=== PATIENT | female | born 1935 | race Caucasian/White ===

== ENCOUNTER 2019-05-23 07:52 | Emergency (ER) | payer MEDICARE, MEDICAID ==
[~2019-05-23] VITALS: Ht 160 cm; Wt 75.0 kg
[~2019-05-23 07:52] MED LIST: ACET-2708 PO; AMLO5TAB88 PO; DIOVAN PO; DIPH25CA83 PO; DOCU-138 PO; DONE10TA11 PO; ESOM40CA PO; FAMO-135 PO; FENO145T36 PO; GABA300C PO; HYDR12.518 PO; IBUP-2029 PO; MECL-109 PO; METO10TA3 PO; METO25TA6 PO; OLME20TA13 PO; PREG50CA PO; PROM-177 PO; RABE20TA17 PO; SENN-22 PO; SERT50TA12 PO; TRAM50TA PO; VIC PO
[2019-05-23 09:05] LABS: BASOPHILS % 1.4 % (0.0-2.0); EOSINOPHILS % 1.8 % (0.0-5.0); HEMATOCRIT. 39.9 % (36.0-48.0); HEMOGLOBIN. 13.3 g/dL (12.0-16.0); MEAN CORPUSCULAR HEMOGLOBIN 31.7 pg (28.0-32.0); MEAN CORPUSCULAR VOLUME 94.7 fL (81.0-99.0); MEAN PLATELET VOLUME 8.7 fl (7.4-10.4); MONOCYTES % 9.5 % (2.0-8.0); NEUTROPHILS % 46.3 % (40.0-76.0); PLATELET 264 x1000/uL (130-400); RED BLOOD CELL COUNT 4.21 mill/uL (4.2-5.4); RED CELL DISTRIBUTION WIDTH 15.9 % (11.6-14.6)
[2019-05-23 09:12] LABS: CHLORIDE 114 mEq/L (98-107)
[2019-05-23 10:15] VITALS: BP 128/88
== END 2019-05-23 11:58 | disposition home or self-care (01) ==
LOC: ER 07:52
DX: R53.1 Weakness (principal); J02.9 Acute pharyngitis, unspecified
CPT/HCPCS: 36415; 71045; 87070; 87430; 93005; 99284

== ENCOUNTER 2019-10-22 22:35 | Inpatient (IN) | payer MEDICARE, MEDICAID ==
[~2019-10-22] VITALS: Ht 167.6 cm; Wt 74.8 kg
[~2019-10-22 22:35] MED LIST changes: +FENO145T25 PO; -FENO145T36 PO; -MECL-109 PO; +MECL-159 PO
[2019-10-22] MEDS ORDERED: PIPERACILLIN/TAZ 3.375G PREMIX 50 ML IV ONE (23:30)
[2019-10-22] MEDS ORDERED: MORPHINE SULFATE 4 MG/ML CPJ (NOT FOR IM USE) IV STA (23:30)
[2019-10-22] MEDS ORDERED: SODIUM CHLORIDE 0.9% 1000ML BAG (SEPSIS BOLUS) IV ONE (23:30)
[2019-10-22] MEDS ORDERED: ONDANSETRON HCL 4MG/2ML INJ IV STA (23:30)
[2019-10-22] MEDS ORDERED: METRONIDAZOLE 500 MG PREMIX 100 ML IV ONE (23:30)
[2019-10-23 00:06] LABS: BASOPHILS % 1.1 % (0.0-2.0); EOSINOPHILS % 0.8 % (0.0-5.0); HEMATOCRIT. 29.8 % (36.0-48.0); HEMOGLOBIN. 10.1 g/dL (12.0-16.0); LYMPHOCYTES % 40.2 % (20.0-50.0); MEAN CORPUSCULAR VOLUME 97.9 fL (81.0-99.0); MEAN PLATELET VOLUME 8.5 fl (7.4-10.4); MONOCYTES % 7.9 % (2.0-8.0); PLATELET 292 x1000/uL (130-400); RED BLOOD CELL COUNT 3.05 mill/uL (4.2-5.4); RED CELL DISTRIBUTION WIDTH 14.8 % (11.6-14.6)
[2019-10-23 00:15] LABS: INR 1.2; PROTHROMBIN TIME 12.7 sec (9.6-11.0)
[2019-10-23 00:24] LABS: CHLORIDE 119 mEq/L (98-107)
[2019-10-23 01:06] LABS: CLARITY URINE CLEAR (CLEAR); COLOR URINE YELLOW (YELLOW); KETONES URINE TRACE (NEGATIVE); LEUKOCYTE ESTERASE URINE NEGATIVE (NEGATIVE); NITRITE URINE NEGATIVE (NEGATIVE); OCCULT BLOOD URINE NEGATIVE (NEGATIVE); PH URINE 6.5 (4.5-8.0); PROTEIN URINE NEGATIVE (NEGATIVE); SPECIFIC GRAVITY URINE 1.021 (1.005-1.030)
[2019-10-23] MEDS ORDERED: GUAIFENESIN 200MG/10ML SUGAR FREE UDC PO PRN (09:45)
[2019-10-23] MEDS ORDERED: ONDANSETRON HCL 4MG/2ML INJ IV PRN (09:45)
[2019-10-23] MEDS ORDERED: ACETAMINOPHEN 325MG TABLET PO PRN (09:45)
[2019-10-23] MEDS ORDERED: IPRATROPIUM/ALBUTEROL 0.5-3(2.5)MG/3ML NEB HHN PRN (09:45)
[2019-10-23] MEDS ORDERED: DOCUSATE SODIUM 100MG CAPSULE PO PRN (09:45)
[2019-10-23] MEDS ORDERED: CLONIDINE 0.1MG TABLET PO PRN (09:45)
[2019-10-23] MEDS: LORAZEPAM 0.5MG TABLET PO PRN ×2 (12:56→20:07)
[2019-10-23 16:10] VITALS: BP 166/76
[2019-10-23] MEDS ORDERED: MECLIZINE 25MG TABLET PO PRN (17:00)
[2019-10-23] MEDS ORDERED: DIATR MEGLU/DIATRIZOATE SOLN 30ML PO NR (18:30)
[2019-10-23] MEDS: SUCRALFATE 1 G/10 ML UDC PO SCH ×2 (18:34→20:18)
[2019-10-23] MEDS: METOPROLOL TARTRATE 25MG TABLET PO SCH (18:35)
[2019-10-23] MEDS: DONEPEZIL HCL 10MG TABLET PO SCH (18:35)
[2019-10-23] MEDS: AMLODIPINE 5MG TABLET PO SCH (18:35)
[2019-10-23 20:00] VITALS: BP 165/79
[2019-10-23] MEDS ORDERED: INFLUENZA VIRUS VACCINE(AFLURIA) 0.5ML SYR IM ONE (20:00)
[2019-10-23] MEDS: PREGABALIN 50 MG CAPSULE PO SCH ×2 (20:18→21:01)
[2019-10-23] MEDS: SERTRALINE HCL 50MG TABLET PO SCH (20:18)
[2019-10-23] MEDS: TRAMADOL 50MG TABLET PO SCH (20:19)
[2019-10-23] MEDS: GABAPENTIN 300MG CAPSULE PO SCH (20:19)
[2019-10-23] MEDS ORDERED: LACTULOSE 20G/30ML UDC PO PRN (21:00)
[2019-10-24] VITALS: BP 142/75
[2019-10-24 04:00] VITALS: BP 147/87
[2019-10-24] MEDS ORDERED: NON FORMULARY PATIENT HOME MED XX SCH (05:00)
[2019-10-24 05:16] LABS: BASOPHILS % 0.7 % (0.0-2.0); HEMATOCRIT. 27.2 % (36.0-48.0); HEMOGLOBIN. 9.3 g/dL (12.0-16.0); LYMPHOCYTES % 22.3 % (20.0-50.0); MEAN CORPUSCULAR HEMOGLOBIN 33.7 pg (28.0-32.0); MEAN CORPUSCULAR VOLUME 98.2 fL (81.0-99.0); MEAN PLATELET VOLUME 9.1 fl (7.4-10.4); MONOCYTES % 3.5 % (2.0-8.0); NEUTROPHILS % 73.5 % (40.0-76.0); PLATELET 272 x1000/uL (130-400); RED BLOOD CELL COUNT 2.77 mill/uL (4.2-5.4); RED CELL DISTRIBUTION WIDTH 14.6 % (11.6-14.6)
[2019-10-24] MEDS: PREGABALIN 50 MG CAPSULE PO SCH ×3 (06:00→21:45)
[2019-10-24] MEDS: SUCRALFATE 1 G/10 ML UDC PO SCH ×4 (06:22→21:47)
[2019-10-24 06:51] LABS: CHLORIDE 116 mEq/L (98-107)
[2019-10-24 08:00] VITALS: BP 122/65
[2019-10-24 08:22] LABS: BASOPHILS % 0.5 % (0.0-2.0); EOSINOPHILS % 0.2 % (0.0-5.0); HEMATOCRIT. 27.1 % (36.0-48.0); HEMOGLOBIN. 9.2 g/dL (12.0-16.0); MEAN CORPUSCULAR VOLUME 97.8 fL (81.0-99.0); MEAN PLATELET VOLUME 8.8 fl (7.4-10.4); MONOCYTES % 5.6 % (2.0-8.0); NEUTROPHILS % 67.7 % (40.0-76.0); PLATELET 285 x1000/uL (130-400); RED BLOOD CELL COUNT 2.77 mill/uL (4.2-5.4); RED CELL DISTRIBUTION WIDTH 14.6 % (11.6-14.6)
[2019-10-24 08:23] LABS: BASOPHILS % 0.8 % (0.0-2.0); EOSINOPHILS % 0.2 % (0.0-5.0); HEMATOCRIT. 26.6 % (36.0-48.0); MEAN CORPUSCULAR HEMOGLOBIN 33.1 pg (28.0-32.0); MEAN PLATELET VOLUME 8.6 fl (7.4-10.4); MONOCYTES % 5.7 % (2.0-8.0); NEUTROPHILS % 66.3 % (40.0-76.0); PLATELET 273 x1000/uL (130-400); RED BLOOD CELL COUNT 2.71 mill/uL (4.2-5.4); RED CELL DISTRIBUTION WIDTH 14.8 % (11.6-14.6)
[2019-10-24] MEDS ORDERED: PANTOPRAZOLE SODIUM 40 MG/VIAL IV SCH (09:00)
[2019-10-24] MEDS ORDERED: PANTOPRAZOLE SODIUM 40 MG/VIAL IV ONE ×2 (10:15→21:35)
[2019-10-24] MEDS: METOPROLOL TARTRATE 25MG TABLET PO SCH (10:23)
[2019-10-24] MEDS: FENOFIBRATE NANOCRYSTALLIZED 145MG TABLET PO SCH (10:23)
[2019-10-24] MEDS: TRAMADOL 50MG TABLET PO SCH ×2 (10:24→21:45)
[2019-10-24] MEDS: DONEPEZIL HCL 10MG TABLET PO SCH (10:24)
[2019-10-24] MEDS: AMLODIPINE 5MG TABLET PO SCH (10:24)
[2019-10-24] MEDS: PANTOPRAZOLE 80 MG in SODIUM CHLORIDE 0.9% 100 ML IV SCH ×2 (10:59→21:46)
[2019-10-24] MEDS ORDERED: BACTERIOSTATIC SODIUM CHLORIDE 0.9% 30ML VIAL IJ ONE (11:19)
[2019-10-24] MEDS ORDERED: DIATR MEGLU/DIATRIZOATE SOLN 30ML PO NR (11:30)
[2019-10-24 12:00] VITALS: BP 169/57
[2019-10-24 16:00] VITALS: BP 164/60
[2019-10-24 16:02] LABS: BASOPHILS % 0.4 % (0.0-2.0); EOSINOPHILS % 0.2 % (0.0-5.0); HEMOGLOBIN. 9.7 g/dL (12.0-16.0); LYMPHOCYTES % 18.7 % (20.0-50.0); MEAN CORPUSCULAR HEMOGLOBIN 32.9 pg (28.0-32.0); MEAN PLATELET VOLUME 8.5 fl (7.4-10.4); MONOCYTES % 5.3 % (2.0-8.0); NEUTROPHILS % 75.4 % (40.0-76.0); PLATELET 300 x1000/uL (130-400); RED BLOOD CELL COUNT 2.93 mill/uL (4.2-5.4); RED CELL DISTRIBUTION WIDTH 14.7 % (11.6-14.6)
[2019-10-24] MEDS: SODIUM CHLORIDE 0.9% 1,000 ML IV SCH (16:07)
[2019-10-24] MEDS ORDERED: MIDAZOLAM HCL 5 MG/5 ML VIAL ONE (17:56)
[2019-10-24] MEDS ORDERED: FENTANYL CITRATE/PF 50MCG/ML 2ML VIAL ONE (17:56)
[2019-10-24] MEDS ORDERED: MIDAZOLAM HCL 5 MG/5 ML VIAL IV PRN (18:01)
[2019-10-24] MEDS ORDERED: FENTANYL CITRATE/PF 50MCG/ML 2ML VIAL IV PRN (18:03)
[2019-10-24 21:00] VITALS: BP 150/60
[2019-10-24] MEDS: GABAPENTIN 300MG CAPSULE PO SCH (21:45)
[2019-10-24] MEDS: SERTRALINE HCL 50MG TABLET PO SCH (21:45)
[2019-10-24 23:44] LABS: BASOPHILS % 0.5 % (0.0-2.0); EOSINOPHILS % 0.4 % (0.0-5.0); HEMATOCRIT. 26.8 % (36.0-48.0); HEMOGLOBIN. 8.8 g/dL (12.0-16.0); LYMPHOCYTES % 38.4 % (20.0-50.0); MEAN CORPUSCULAR HEMOGLOBIN 32.9 pg (28.0-32.0); MEAN CORPUSCULAR VOLUME 99.8 fL (81.0-99.0); MEAN PLATELET VOLUME 8.5 fl (7.4-10.4); MONOCYTES % 6.9 % (2.0-8.0); NEUTROPHILS % 53.8 % (40.0-76.0); PLATELET 302 x1000/uL (130-400); RED BLOOD CELL COUNT 2.69 mill/uL (4.2-5.4); RED CELL DISTRIBUTION WIDTH 14.3 % (11.6-14.6)
[2019-10-25 00:44] VITALS: BP 148/66
[2019-10-25 04:00] VITALS: BP 120/50
[2019-10-25] MEDS: PANTOPRAZOLE 80 MG in SODIUM CHLORIDE 0.9% 100 ML IV SCH ×2 (05:28→18:07)
[2019-10-25] MEDS: PREGABALIN 50 MG CAPSULE PO SCH ×3 (05:28→22:37)
[2019-10-25 06:25] LABS: BASOPHILS % 0.8 % (0.0-2.0); EOSINOPHILS % 1.6 % (0.0-5.0); HEMATOCRIT. 24.4 % (36.0-48.0); HEMOGLOBIN. 8.1 g/dL (12.0-16.0); MEAN CORPUSCULAR HEMOGLOBIN 33.3 pg (28.0-32.0); MEAN CORPUSCULAR VOLUME 100.6 fL (81.0-99.0); MEAN PLATELET VOLUME 8.8 fl (7.4-10.4); MONOCYTES % 7.9 % (2.0-8.0); NEUTROPHILS % 49.7 % (40.0-76.0); PLATELET 276 x1000/uL (130-400); RED BLOOD CELL COUNT 2.43 mill/uL (4.2-5.4); RED CELL DISTRIBUTION WIDTH 14.8 % (11.6-14.6)
[2019-10-25] MEDS: SODIUM CHLORIDE 0.9% 1,000 ML IV SCH ×2 (06:39→22:03)
[2019-10-25] MEDS: SUCRALFATE 1 G/10 ML UDC PO SCH ×4 (07:56→22:37)
[2019-10-25 08:00] VITALS: BP 112/34
[2019-10-25] MEDS: METOPROLOL TARTRATE 25MG TABLET PO SCH (08:32)
[2019-10-25] MEDS: TRAMADOL 50MG TABLET PO SCH ×2 (08:33→22:37)
[2019-10-25] MEDS: DONEPEZIL HCL 10MG TABLET PO SCH (08:33)
[2019-10-25] MEDS: AMLODIPINE 5MG TABLET PO SCH (08:34)
[2019-10-25] MEDS: FENOFIBRATE NANOCRYSTALLIZED 145MG TABLET PO SCH (08:37)
[2019-10-25] MEDS: HYDROCODONE/ACETAMINOPHEN 5/325MG TABLET PO PRN (11:44)
[2019-10-25 11:55] LABS: BG BASE EXCESS -3.7 mmol/L (-2.0-2.0); BG CARBOXYHEMOGLOBIN 0.3 % (0.5-1.5); BG DEOXYHEMOGLOBIN 5.4 % (0.0-5.0); BG FRACTION INSPIRED OXYGEN 28; BG HCO3 ACT 21.1 mmol/L (22.0-26.0); BG OXYGEN SATURATION 94.6 % (92.0-98.5); BG OXYHEMOGLOBIN 94.3 % (94.0-97.0); BG PCO2 37.2 mmHg (35.0-45.0); BG PH 7.372 (7.350-7.450); BG PO2 79.8 mmHg (75.0-100.0); BG SAMPLE SITE RIGHT BRACHIAL; BG VENT MODE NASAL CANNULA
[2019-10-25 12:00] VITALS: BP 131/46
[2019-10-25] MEDS: GABAPENTIN 300MG CAPSULE PO SCH (15:41)
[2019-10-25 16:00] VITALS: BP 106/38
[2019-10-25 20:00] VITALS: BP 147/50
[2019-10-25] MEDS: SERTRALINE HCL 50MG TABLET PO SCH (22:37)
[2019-10-26] VITALS: BP 137/48
[2019-10-26] MEDS: PANTOPRAZOLE 80 MG in SODIUM CHLORIDE 0.9% 100 ML IV SCH ×3 (01:58→21:55)
[2019-10-26 04:00] VITALS: BP 132/47
[2019-10-26] MEDS: PREGABALIN 50 MG CAPSULE PO SCH ×3 (05:29→21:54)
[2019-10-26 06:34] LABS: BASOPHILS % 0.8 % (0.0-2.0); EOSINOPHILS % 2.9 % (0.0-5.0); HEMATOCRIT. 22.8 % (36.0-48.0); HEMOGLOBIN. 7.7 g/dL (12.0-16.0); LYMPHOCYTES % 39.4 % (20.0-50.0); MEAN CORPUSCULAR HEMOGLOBIN 33.6 pg (28.0-32.0); MEAN CORPUSCULAR VOLUME 99.7 fL (81.0-99.0); MEAN PLATELET VOLUME 8.7 fl (7.4-10.4); MONOCYTES % 8.9 % (2.0-8.0); PLATELET 236 x1000/uL (130-400); RED BLOOD CELL COUNT 2.28 mill/uL (4.2-5.4); RED CELL DISTRIBUTION WIDTH 14.8 % (11.6-14.6)
[2019-10-26 08:00] VITALS: BP 124/44
[2019-10-26] MEDS ORDERED: PANTOPRAZOLE SODIUM 40 MG/VIAL IV ONE (09:19)
[2019-10-26] MEDS: METOPROLOL TARTRATE 25MG TABLET PO SCH (09:21)
[2019-10-26] MEDS: SUCRALFATE 1 G/10 ML UDC PO SCH ×4 (09:21→21:55)
[2019-10-26] MEDS: DONEPEZIL HCL 10MG TABLET PO SCH (09:21)
[2019-10-26] MEDS: FENOFIBRATE NANOCRYSTALLIZED 145MG TABLET PO SCH (09:21)
[2019-10-26] MEDS: TRAMADOL 50MG TABLET PO SCH ×2 (09:21→21:54)
[2019-10-26] MEDS: AMLODIPINE 5MG TABLET PO SCH (09:22)
[2019-10-26] MEDS: HYDROCODONE/ACETAMINOPHEN 5/325MG TABLET PO PRN (11:51)
[2019-10-26 12:00] VITALS: BP 84/33
[2019-10-26] MEDS ORDERED: POTASSIUM CHLORIDE 20MEQ TABLET SR PO SCH (13:00)
[2019-10-26 16:00] VITALS: BP 89/44
[2019-10-26 20:00] VITALS: BP 108/42
[2019-10-26] MEDS: SERTRALINE HCL 50MG TABLET PO SCH (21:54)
[2019-10-26] MEDS: GABAPENTIN 300MG CAPSULE PO SCH (21:54)
[2019-10-26] MEDS: SODIUM CHLORIDE 0.9% 1,000 ML IV SCH (21:55)
[2019-10-26] MEDS: DICYCLOMINE HCL 20MG TABLET PO SCH (22:03)
[2019-10-27] VITALS: BP 110/42
[2019-10-27] MEDS: DICYCLOMINE HCL 20MG TABLET PO SCH ×4 (00:13→18:12)
[2019-10-27 04:00] VITALS: BP 117/49
[2019-10-27] MEDS: SODIUM CHLORIDE 0.9% 1,000 ML IV SCH ×2 (04:51→20:15)
[2019-10-27] MEDS: PREGABALIN 50 MG CAPSULE PO SCH ×3 (05:47→21:20)
[2019-10-27 06:57] LABS: BASOPHILS % 0.7 % (0.0-2.0); EOSINOPHILS % 3.9 % (0.0-5.0); HEMATOCRIT. 23.1 % (36.0-48.0); HEMOGLOBIN. 7.6 g/dL (12.0-16.0); LYMPHOCYTES % 40.9 % (20.0-50.0); MEAN CORPUSCULAR HEMOGLOBIN 33.1 pg (28.0-32.0); MEAN CORPUSCULAR VOLUME 100.4 fL (81.0-99.0); MONOCYTES % 8.4 % (2.0-8.0); NEUTROPHILS % 46.1 % (40.0-76.0); PLATELET 247 x1000/uL (130-400); RED CELL DISTRIBUTION WIDTH 14.8 % (11.6-14.6)
[2019-10-27 08:00] VITALS: BP 113/47
[2019-10-27] MEDS: SUCRALFATE 1 G/10 ML UDC PO SCH ×4 (08:40→21:20)
[2019-10-27] MEDS: FENOFIBRATE NANOCRYSTALLIZED 145MG TABLET PO SCH (08:40)
[2019-10-27] MEDS: TRAMADOL 50MG TABLET PO SCH ×2 (08:42→21:20)
[2019-10-27] MEDS: METOPROLOL TARTRATE 25MG TABLET PO SCH (08:44)
[2019-10-27] MEDS: AMLODIPINE 5MG TABLET PO SCH (08:44)
[2019-10-27] MEDS: DONEPEZIL HCL 10MG TABLET PO SCH (08:44)
[2019-10-27 12:00] VITALS: BP 104/48
[2019-10-27] MEDS ORDERED: SUCR1ORA15 PO (14:19)
[2019-10-27 16:00] VITALS: BP 110/36
[2019-10-27 20:00] VITALS: BP 137/45
[2019-10-27] MEDS: PANTOPRAZOLE SODIUM 40 MG/VIAL IV SCH (21:19)
[2019-10-27] MEDS: SERTRALINE HCL 50MG TABLET PO SCH (21:19)
[2019-10-27] MEDS: GABAPENTIN 300MG CAPSULE PO SCH (21:20)
[2019-10-28] VITALS: BP 134/48
[2019-10-28] MEDS: DICYCLOMINE HCL 20MG TABLET PO SCH ×3 (00:32→13:59)
[2019-10-28 04:00] VITALS: BP 140/50
[2019-10-28] MEDS: PREGABALIN 50 MG CAPSULE PO SCH ×2 (06:33→13:59)
[2019-10-28 08:00] VITALS: BP 134/50
[2019-10-28] MEDS: PANTOPRAZOLE SODIUM 40 MG/VIAL IV SCH (09:05)
[2019-10-28] MEDS: FENOFIBRATE NANOCRYSTALLIZED 145MG TABLET PO SCH (09:05)
[2019-10-28] MEDS: SUCRALFATE 1 G/10 ML UDC PO SCH ×2 (09:05→13:59)
[2019-10-28] MEDS: METOPROLOL TARTRATE 25MG TABLET PO SCH (09:08)
[2019-10-28] MEDS: TRAMADOL 50MG TABLET PO SCH (09:08)
[2019-10-28] MEDS: AMLODIPINE 5MG TABLET PO SCH (09:09)
[2019-10-28] MEDS: DONEPEZIL HCL 10MG TABLET PO SCH (09:09)
[2019-10-28 12:00] VITALS: BP 137/54
[2019-10-28 13:38] VITALS: BP 137/54
== END 2019-10-28 14:35 | disposition home or self-care (01) | DRG 241 ==
LOC: ER 22:35 → 7WST 10-23 03:10 → EDBEDREQ 10-23 03:42 → EDBEDREQSVC 10-23 07:44 → ENRESERV 10-23 14:19 → 7WST 10-23 16:26
PROVIDERS: ADMIT Internal Medicine; ATTEND Internal Medicine
PROC: 0DB98ZX Excision of Duodenum, Via Natural or Artificial Opening Endoscopic, Diagnostic (ICD-10-PCS; principal; 2019-10-24)
PROC: 0DB78ZX Excision of Stomach, Pylorus, Via Natural or Artificial Opening Endoscopic, Diagnostic (ICD-10-PCS; 2019-10-24)
PROC: 0DJD8ZZ Inspection of Lower Intestinal Tract, Via Natural or Artificial Opening Endoscopic (ICD-10-PCS; 2019-10-24)
DX: K29.70 Gastritis, unspecified, without bleeding (principal); E46 Unspecified protein-calorie malnutrition; E87.2 Acidosis; D64.9 Anemia, unspecified; K26.9 Duodenal ulcer, unspecified as acute or chronic, without hemorrhage or perforation; E11.9 Type 2 diabetes mellitus without complications; E66.9 Obesity, unspecified; F03.90 Unspecified dementia, unspecified severity, without behavioral disturbance, psychotic disturbance, mood disturbance, and anxiety; K29.80 Duodenitis without bleeding; K57.30 Diverticulosis of large intestine without perforation or abscess without bleeding; I10 Essential (primary) hypertension; I25.10 Atherosclerotic heart disease of native coronary artery without angina pectoris; K76.0 Fatty (change of) liver, not elsewhere classified; G89.29 Other chronic pain; K64.9 Unspecified hemorrhoids; K21.9 Gastro-esophageal reflux disease without esophagitis; M19.90 Unspecified osteoarthritis, unspecified site; K82.8 Other specified diseases of gallbladder; J98.11 Atelectasis; K76.9 Liver disease, unspecified; M17.0 Bilateral primary osteoarthritis of knee; Z68.26 Body mass index [BMI] 26.0-26.9, adult; Z87.11 Personal history of peptic ulcer disease; Z87.19 Personal history of other diseases of the digestive system; Z79.899 Other long term (current) drug therapy
CPT/HCPCS: 36415; 36600; 71045; 74176; 76700; 80048; 80053; 81003; 82270; 82375; 82805; 83605; 84145; 84484; 85025; 86850; 86900; 86920; 87015; 87045; 87427; 87449; 87493; 88305; 88312; 88313; 93005; 96365; 97162; 99152; 99285; C1893; C9113; J2250; J2270; J2405; J2543; J3010; J3490; J7030; J7040; J7050; J8597; Q9963; G0500

== ENCOUNTER 2020-07-17 23:15 | Inpatient (IN) | payer MEDICARE, MEDICAID ==
[~2020-07-17] VITALS: Ht 157.5 cm; Wt 71.9 kg
[~2020-07-17 23:15] MED LIST changes: -DIOVAN PO; -FAMO-135 PO; -HYDR12.518 PO; -IBUP-2029 PO; -METO10TA3 PO; -OLME20TA13 PO; -PROM-177 PO; -RABE20TA17 PO; -SENN-22 PO; +SUCR1ORA15 PO; -VIC PO
[2020-07-17] MEDS ORDERED: SODIUM CHLORIDE 0.9% 1,000 ML IV ONE (23:45)
[2020-07-17 23:58] LABS: HEMATOCRIT. 29.4 % (36.0-48.0); HEMOGLOBIN. 9.7 g/dL (12.0-16.0); MEAN CORPUSCULAR HEMOGLOBIN 27.3 pg (28.0-32.0); MEAN CORPUSCULAR VOLUME 82.9 fL (81.0-99.0); PLATELET 305 x1000/uL (130-400); RED BLOOD CELL COUNT 3.54 mill/uL (4.2-5.4); RED CELL DISTRIBUTION WIDTH 23.7 % (11.6-14.6)
[2020-07-18 00:01] LABS: INR 1.1; PROTHROMBIN TIME 11.9 sec (9.6-11.0)
[2020-07-18 00:07] LABS: CHLORIDE 103 mEq/L (98-107)
[2020-07-18 00:11] LABS: BG BASE EXCESS -3.8 mmol/L (-2.0-2.0); BG CARBOXYHEMOGLOBIN 0.3 % (0.5-1.5); BG FRACTION INSPIRED OXYGEN 21; BG HCO3 ACT 19.2 mmol/L (22.0-26.0); BG METHEMOGLOBIN 0.3 % (0.0-1.5); BG OXYHEMOGLOBIN 94.4 % (94.0-97.0); BG PH 7.438 (7.350-7.450); BG PO2 77.3 mmHg (75.0-100.0); BG SAMPLE SITE RIGHT RADIAL; BG TOTAL HEMOGLOBIN 13.2 g/dL (12.0-18.0); BG VENT MODE ROOM AIR
[2020-07-18 00:24] LABS: CLARITY URINE CLEAR (CLEAR); COLOR URINE YELLOW (YELLOW); KETONES URINE NEGATIVE (NEGATIVE); LEUKOCYTE ESTERASE URINE 3+ (NEGATIVE); NITRITE URINE NEGATIVE (NEGATIVE); OCCULT BLOOD URINE TRACE (NEGATIVE); PH URINE 6.5 (4.5-8.0); PROTEIN URINE NEGATIVE (NEGATIVE); SPECIFIC GRAVITY URINE 1.009 (1.005-1.030); UROBILINOGEN URINE 0.2 E.U./dL (0.2-1.0)
[2020-07-18 00:36] LABS: PLATELET ESTIMATE NORMAL
[2020-07-18] MEDS ORDERED: CEFTRIAXONE 1 G PREMIX 50 ML IV NR (01:30)
[2020-07-18] MEDS ORDERED: MORPHINE SULFATE 2 MG/ML CPJ (NOT FOR IM USE) IV ONE (02:15)
[2020-07-18 04:00] VITALS: BP 163/67
[2020-07-18 04:51] VITALS: BP 163/67
[2020-07-18 09:04] VITALS: BP 141/50
[2020-07-18] MEDS ORDERED: ENOXAPARIN 30MG/0.3ML SYR SUBCUT SCH (11:00)
[2020-07-18 12:30] VITALS: BP 132/58
[2020-07-18] MEDS: SODIUM CHLORIDE 0.9% 1,000 ML IV SCH (13:08)
[2020-07-18 16:10] VITALS: BP 175/80
[2020-07-18] MEDS ORDERED: ENOXAPARIN 40MG/0.4ML SYR SUBCUT NR (16:30)
[2020-07-18] MEDS ORDERED: ACETAMINOPHEN 325MG TABLET PO PRN (20:15)
[2020-07-18] MEDS ORDERED: CLONIDINE 0.1MG TABLET PO PRN (20:15)
[2020-07-18 20:30] VITALS: BP 193/85
[2020-07-18] MEDS: AMLODIPINE 5MG TABLET PO SCH (21:23)
[2020-07-18] MEDS: KETOROLAC 15MG/ML VIAL IV PRN (21:24)
[2020-07-19] VITALS (8 sets, daily range): BP systolic 126–167; BP diastolic 48–89
[2020-07-19] MEDS: SODIUM CHLORIDE 0.9% 1,000 ML IV SCH ×2 (00:23→12:39)
[2020-07-19] MEDS: CEFTRIAXONE 1,000 MG in DEXT 5% WATER 100 ML IV SCH (06:18)
[2020-07-19 07:15] LABS: BASOPHILS % 1.2 % (0.0-2.0); HEMATOCRIT. 27.8 % (36.0-48.0); HEMOGLOBIN. 9.2 g/dL (12.0-16.0); MEAN CORPUSCULAR HEMOGLOBIN 27.6 pg (28.0-32.0); MEAN CORPUSCULAR VOLUME 83.3 fL (81.0-99.0); MEAN PLATELET VOLUME 8.1 fl (7.4-10.4); MONOCYTES % 12.2 % (2.0-8.0); NEUTROPHILS % 23.6 % (40.0-76.0); PLATELET 276 x1000/uL (130-400); RED BLOOD CELL COUNT 3.34 mill/uL (4.2-5.4); RED CELL DISTRIBUTION WIDTH 23.7 % (11.6-14.6)
[2020-07-19 07:29] LABS: CHLORIDE 116 mEq/L (98-107)
[2020-07-19 07:40] LABS: PHOSPHORUS 3.8 mg/dL (2.5-4.9); TOTAL IRON BINDING CAPACITY 228 ug/dL (250-450)
[2020-07-19 07:43] LABS: T4 FREE 0.99 ng/dL (0.76-1.46)
[2020-07-19 08:17] LABS: VITAMIN B12 SERUM >2000 pg/mL pg/mL (211-911)
[2020-07-19] MEDS: AMLODIPINE 5MG TABLET PO SCH ×2 (10:52→20:46)
[2020-07-19] MEDS: LOSARTAN POTASSIUM 50 MG TABLET PO SCH (10:52)
[2020-07-19] MEDS: CLONIDINE 0.2MG TABLET PO PRN (13:16)
[2020-07-19] MEDS: KETOROLAC 15MG/ML VIAL IV PRN ×2 (13:17→20:47)
[2020-07-19] MEDS: ENOXAPARIN 80MG/0.8ML SYR SUBCUT SCH (17:37)
[2020-07-20 00:13] VITALS: BP 131/50
[2020-07-20] MEDS: SODIUM CHLORIDE 0.9% 1,000 ML IV SCH ×3 (03:34→17:23)
[2020-07-20 04:00] VITALS: BP 195/82
[2020-07-20] MEDS: CLONIDINE 0.2MG TABLET PO PRN (06:04)
[2020-07-20] MEDS: CEFTRIAXONE 1,000 MG in DEXT 5% WATER 100 ML IV SCH (06:04)
[2020-07-20 08:00] VITALS: BP 91/41
[2020-07-20] MEDS: AMLODIPINE 5MG TABLET PO SCH ×2 (08:57→11:00)
[2020-07-20] MEDS: LOSARTAN POTASSIUM 50 MG TABLET PO SCH (08:57)
[2020-07-20 12:00] VITALS: BP 141/55
[2020-07-20 16:00] VITALS: BP 137/58
[2020-07-20] MEDS: ENOXAPARIN 80MG/0.8ML SYR SUBCUT SCH (17:23)
[2020-07-20 20:00] VITALS: BP 155/41
[2020-07-21] VITALS: BP 162/56
[2020-07-21 04:00] VITALS: BP 146/67
[2020-07-21] MEDS: SODIUM CHLORIDE 0.9% 1,000 ML IV SCH (04:25)
[2020-07-21] MEDS: CEFTRIAXONE 1,000 MG in DEXT 5% WATER 100 ML IV SCH ×2 (06:00→08:00)
[2020-07-21 08:19] VITALS: BP 176/80
[2020-07-21] MEDS ORDERED: LOSARTAN POTASSIUM 25 MG TABLET PO SCH ×2 (09:00→21:00)
[2020-07-21] MEDS: ENOXAPARIN 80MG/0.8ML SYR SUBCUT SCH (09:01)
[2020-07-21] MEDS: AMLODIPINE 5MG TABLET PO SCH (09:01)
[2020-07-21 12:38] VITALS: BP 174/88
[2020-07-21] MEDS ORDERED: OMEP40CA12 PO (15:49)
[2020-07-21] MEDS ORDERED: VALS160T2 PO (15:49)
[2020-07-21 16:04] VITALS: BP 152/73
[2020-07-21 16:08] VITALS: BP 174/88
[2020-07-21] MEDS ORDERED: AMLODIPINE 5MG TABLET PO SCH (21:00)
== END 2020-07-21 17:53 | disposition home or self-care (01) | DRG 720 ==
LOC: ER 23:35 → 6WST 07-18 03:41 → EDBEDREQ 07-18 03:52 → EDBEDREQTM 07-18 03:52 → EDBEDREQDT 07-18 03:52 → ENRESERV 07-18 03:59
PROVIDERS: ADMIT Internal Medicine; ATTEND Internal Medicine
DX: A41.9 Sepsis, unspecified organism (principal); G93.41 Metabolic encephalopathy; N17.9 Acute kidney failure, unspecified; N39.0 Urinary tract infection, site not specified; I82.411 Acute embolism and thrombosis of right femoral vein; J32.0 Chronic maxillary sinusitis; I10 Essential (primary) hypertension; F03.90 Unspecified dementia, unspecified severity, without behavioral disturbance, psychotic disturbance, mood disturbance, and anxiety; D72.10 Eosinophilia, unspecified; E11.9 Type 2 diabetes mellitus without complications; J98.11 Atelectasis; M19.90 Unspecified osteoarthritis, unspecified site; D64.9 Anemia, unspecified; Z79.1 Long term (current) use of non-steroidal anti-inflammatories (NSAID); Z79.899 Other long term (current) drug therapy; I69.351 Hemiplegia and hemiparesis following cerebral infarction affecting right dominant side; B95.1 Streptococcus, group B, as the cause of diseases classified elsewhere
CPT/HCPCS: 36415; 36600; 70551; 71045; 80048; 80053; 81003; 82375; 82607; 82805; 82962; 83540; 83550; 83605; 83735; 83880; 84100; 84145; 84439; 84443; 84484; 85025; 86850; 86900; 87077; 93005; 93970; 97162; 99291; J0696; J1650; J1885; J2270; J7030; J7060

== ENCOUNTER 2021-05-10 13:36 | Inpatient (IN) | payer MEDICARE, MEDICAID ==
[~2021-05-10] VITALS: Ht 167.6 cm; Wt 81.2 kg
[~2021-05-10 13:36] MED LIST changes: -ACET-2708 PO; -AMLO5TAB88 PO; -DIPH25CA83 PO; -DOCU-138 PO; -DONE10TA11 PO; -ESOM40CA PO; -FENO145T25 PO; -METO25TA6 PO; +OMEP40CA12 PO; -PREG50CA PO; -SERT50TA12 PO; +VALS160T2 PO
[2021-05-10] MEDS: MORPHINE SULFATE 4 MG/ML CPJ (NOT FOR IM USE) IV PRN ×2 (15:43→18:42)
[2021-05-10 16:29] LABS: HEMOGLOBIN. 10.8 g/dL (12.0-16.0); MEAN CORPUSCULAR HEMOGLOBIN 31.2 pg (28.0-32.0); MEAN CORPUSCULAR VOLUME 89.5 fL (81.0-99.0); MEAN PLATELET VOLUME 7.1 fl (7.4-10.4); PLATELET 312 x1000/uL (130-400); RED BLOOD CELL COUNT 3.46 mill/uL (4.2-5.4); RED CELL DISTRIBUTION WIDTH 15.6 % (11.6-14.6)
[2021-05-10 16:33] LABS: CHLORIDE 90 mEq/L (98-107)
[2021-05-10 16:39] LABS: INR 1.2; PARTIAL THROMBOPLASTIN TIME 30.2 sec (23.4-31.0); PROTHROMBIN TIME 12.9 sec (9.6-11.0)
[2021-05-10 18:11] LABS: PLATELET ESTIMATE NORMAL
[2021-05-10 19:21] LABS: SODIUM URINE RANDOM 26 mEq/L
[2021-05-11] MEDS ORDERED: MAGNESIUM/ALUMINUM HYDROXIDE/SIMETHICONE 30ML UDC PO PRN (00:15)
[2021-05-11] MEDS ORDERED: MAGNESIUM HYDROXIDE 400MG/5ML 30ML UDC PO PRN (00:15)
[2021-05-11] MEDS ORDERED: HYDRALAZINE 20MG/ML VIAL IV PRN (00:15)
[2021-05-11] MEDS ORDERED: DIPHENHYDRAMINE 50MG/ML VIAL IV PRN (00:15)
[2021-05-11] MEDS ORDERED: CLONIDINE 0.1MG TABLET PO PRN (00:15)
[2021-05-11] MEDS ORDERED: ACETAMINOPHEN 325MG TABLET PO PRN (00:15)
[2021-05-11] MEDS: SODIUM CHLORIDE 0.9% 1,000 ML IV SCH (01:18)
[2021-05-11] MEDS: AMLODIPINE 5MG TABLET PO SCH ×3 (01:47→21:00)
[2021-05-11] MEDS: LOSARTAN POTASSIUM 50 MG TABLET PO SCH ×2 (01:47→13:26)
[2021-05-11] MEDS: SODIUM CHLORIDE 0.9% INJ 3ML FLUSH IVF SCH ×2 (06:25→14:30)
[2021-05-11] MEDS ORDERED: ENOXAPARIN 40MG/0.4ML SYR SUBCUT SCH (09:00)
[2021-05-11] MEDS: SODIUM CHLORIDE 1000MG TABLET PO SCH ×2 (10:12→21:00)
[2021-05-11] MEDS: PANTOPRAZOLE SODIUM 40 MG/VIAL IV SCH (10:12)
[2021-05-11] MEDS: DOCUSATE SODIUM 100MG CAPSULE PO SCH ×2 (10:12→17:30)
[2021-05-11] MEDS: MORPHINE SULFATE 4 MG/ML CPJ (NOT FOR IM USE) IV PRN (10:43)
[2021-05-11] MEDS: ONDANSETRON HCL 4MG/2ML INJ IV PRN (12:34)
[2021-05-11 15:31] LABS: BASOPHILS % 0.6 % (0.0-2.0); EOSINOPHILS % 0.5 % (0.0-5.0); HEMATOCRIT. 34.4 % (36.0-48.0); HEMOGLOBIN. 10.9 g/dL (12.0-16.0); LYMPHOCYTES % 21.5 % (20.0-50.0); MEAN CORPUSCULAR HEMOGLOBIN 30.5 pg (28.0-32.0); MEAN PLATELET VOLUME 6.7 fl (7.4-10.4); NEUTROPHILS % 65.4 % (40.0-76.0); PLATELET 261 x1000/uL (130-400); RED BLOOD CELL COUNT 3.59 mill/uL (4.2-5.4); RED CELL DISTRIBUTION WIDTH 16.8 % (11.6-14.6)
[2021-05-11] MEDS: HYDROMORPHONE HCL/PF 2MG/ML CPJ IV PRN (19:18)
[2021-05-11 23:00] VITALS: BP 127/79
[2021-05-12] VITALS: BP 130/62
[2021-05-12] MEDS: SODIUM CHLORIDE 0.9% INJ 3ML FLUSH IVF SCH ×4 (01:14→21:06)
[2021-05-12] MEDS: SODIUM CHLORIDE 0.9% 1,000 ML IV SCH ×3 (01:18→13:20)
[2021-05-12 04:00] VITALS: BP 112/57
[2021-05-12 05:29] LABS: BASOPHILS % 0.4 % (0.0-2.0); EOSINOPHILS % 0.1 % (0.0-5.0); HEMATOCRIT. 29.3 % (36.0-48.0); HEMOGLOBIN. 9.7 g/dL (12.0-16.0); LYMPHOCYTES % 15.9 % (20.0-50.0); MEAN CORPUSCULAR HEMOGLOBIN 30.2 pg (28.0-32.0); MEAN CORPUSCULAR VOLUME 91.1 fL (81.0-99.0); MEAN PLATELET VOLUME 7.5 fl (7.4-10.4); MONOCYTES % 9.5 % (2.0-8.0); NEUTROPHILS % 74.1 % (40.0-76.0); PLATELET 274 x1000/uL (130-400); RED BLOOD CELL COUNT 3.21 mill/uL (4.2-5.4); RED CELL DISTRIBUTION WIDTH 16.1 % (11.6-14.6)
[2021-05-12 08:14] VITALS: BP 110/71
[2021-05-12] MEDS: PANTOPRAZOLE SODIUM 40 MG/VIAL IV SCH (08:30)
[2021-05-12] MEDS: SODIUM CHLORIDE 1000MG TABLET PO SCH ×2 (08:31→21:06)
[2021-05-12] MEDS: LOSARTAN POTASSIUM 50 MG TABLET PO SCH (08:31)
[2021-05-12] MEDS: AMLODIPINE 5MG TABLET PO SCH ×2 (08:31→21:06)
[2021-05-12] MEDS: ENOXAPARIN 30MG/0.3ML SYR SUBCUT SCH (08:31)
[2021-05-12] MEDS: ACETAMINOPHEN 325MG TABLET PO PRN ×2 (08:32→13:23)
[2021-05-12] MEDS: DOCUSATE SODIUM 100MG CAPSULE PO SCH ×2 (09:13→17:00)
[2021-05-12] MEDS: ONDANSETRON HCL 4MG/2ML INJ IV PRN (09:13)
[2021-05-12] MEDS ORDERED: SODIUM POLYSTYRENE SULFONATE 15 G/60 ML BOT PO NR (12:00)
[2021-05-12 12:01] VITALS: BP 135/49
[2021-05-12 13:24] LABS: CREATINE KINASE 163 IU/L (26-192)
[2021-05-12 15:53] LABS: CLARITY URINE CLOUDY (CLEAR); COLOR URINE YELLOW (YELLOW); KETONES URINE NEGATIVE (NEGATIVE); LEUKOCYTE ESTERASE URINE 3+ (NEGATIVE); NITRITE URINE NEGATIVE (NEGATIVE); OCCULT BLOOD URINE 3+ (NEGATIVE); PROTEIN URINE 1+ (NEGATIVE); SPECIFIC GRAVITY URINE 1.013 (1.005-1.030); UROBILINOGEN URINE 0.2 E.U./dL (0.2-1.0)
[2021-05-12 16:00] VITALS: BP 130/60
[2021-05-12 20:00] VITALS: BP 144/63
[2021-05-12] MEDS ORDERED: NALOXONE HCL 0.4MG/ML VIAL IV PRN (22:00)
[2021-05-12] MEDS: HYDROMORPHONE HCL/PF 2MG/ML CPJ IV PRN (22:34)
[2021-05-13] VITALS: BP 118/68
[2021-05-13] MEDS: SODIUM CHLORIDE 0.9% 1,000 ML IV SCH ×2 (00:10→12:38)
[2021-05-13 04:00] VITALS: BP 111/42
[2021-05-13] MEDS: SODIUM CHLORIDE 0.9% INJ 3ML FLUSH IVF SCH ×3 (05:46→21:01)
[2021-05-13 05:59] LABS: BASOPHILS % 0.5 % (0.0-2.0); EOSINOPHILS % 0.4 % (0.0-5.0); HEMATOCRIT. 27.8 % (36.0-48.0); HEMOGLOBIN. 9.5 g/dL (12.0-16.0); LYMPHOCYTES % 9.5 % (20.0-50.0); MEAN CORPUSCULAR HEMOGLOBIN 31.4 pg (28.0-32.0); MEAN CORPUSCULAR VOLUME 92.3 fL (81.0-99.0); MEAN PLATELET VOLUME 7.3 fl (7.4-10.4); MONOCYTES % 7.8 % (2.0-8.0); NEUTROPHILS % 81.8 % (40.0-76.0); PLATELET 265 x1000/uL (130-400); RED BLOOD CELL COUNT 3.02 mill/uL (4.2-5.4); RED CELL DISTRIBUTION WIDTH 16.4 % (11.6-14.6)
[2021-05-13 06:16] LABS: CHLORIDE 103 mEq/L (98-107)
[2021-05-13 08:00] VITALS: BP 120/61
[2021-05-13] MEDS: DOCUSATE SODIUM 100MG CAPSULE PO SCH ×2 (08:47→17:35)
[2021-05-13] MEDS: PANTOPRAZOLE SODIUM 40 MG/VIAL IV SCH (08:47)
[2021-05-13] MEDS: SODIUM CHLORIDE 1000MG TABLET PO SCH ×2 (08:48→21:01)
[2021-05-13] MEDS: LOSARTAN POTASSIUM 50 MG TABLET PO SCH (08:48)
[2021-05-13] MEDS: AMLODIPINE 5MG TABLET PO SCH ×2 (08:48→21:01)
[2021-05-13] MEDS: HYDROMORPHONE HCL/PF 2MG/ML CPJ IV PRN ×3 (08:48→17:41)
[2021-05-13] MEDS: ENOXAPARIN 30MG/0.3ML SYR SUBCUT SCH (08:49)
[2021-05-13 12:00] VITALS: BP 121/64
[2021-05-13 16:00] VITALS: BP 121/64
[2021-05-13 20:00] VITALS: BP 119/71
[2021-05-14] VITALS: BP 138/59
[2021-05-14] MEDS: SODIUM CHLORIDE 0.9% 1,000 ML IV SCH ×2 (02:16→20:48)
[2021-05-14 04:00] VITALS: BP 104/55
[2021-05-14] MEDS: SODIUM CHLORIDE 0.9% INJ 3ML FLUSH IVF SCH ×3 (06:54→20:47)
[2021-05-14 08:00] VITALS: BP 131/57
[2021-05-14 08:00] LABS: BASOPHILS % 0.4 % (0.0-2.0); EOSINOPHILS % 0.8 % (0.0-5.0); LYMPHOCYTES % 18.6 % (20.0-50.0); MEAN CORPUSCULAR HEMOGLOBIN 31.1 pg (28.0-32.0); MEAN CORPUSCULAR VOLUME 92.7 fL (81.0-99.0); MEAN PLATELET VOLUME 7.3 fl (7.4-10.4); MONOCYTES % 11.6 % (2.0-8.0); NEUTROPHILS % 68.6 % (40.0-76.0); PLATELET 277 x1000/uL (130-400); RED BLOOD CELL COUNT 2.59 mill/uL (4.2-5.4); RED CELL DISTRIBUTION WIDTH 16.2 % (11.6-14.6)
[2021-05-14] MEDS: LOSARTAN POTASSIUM 50 MG TABLET PO SCH (09:00)
[2021-05-14] MEDS: AMLODIPINE 5MG TABLET PO SCH ×2 (09:00→20:45)
[2021-05-14] MEDS ORDERED: KCL 20MEQ/100ML PREMIX 100 ML IV NR (10:00)
[2021-05-14] MEDS: SODIUM CHLORIDE 1000MG TABLET PO SCH ×2 (10:01→20:45)
[2021-05-14] MEDS: FAMOTIDINE 20MG TABLET PO SCH (10:01)
[2021-05-14] MEDS: ENOXAPARIN 30MG/0.3ML SYR SUBCUT SCH (10:03)
[2021-05-14] MEDS: HYDROMORPHONE HCL/PF 2MG/ML CPJ IV PRN (10:19)
[2021-05-14 11:06] LABS: PHOSPHORUS 2.9 mg/dL (2.5-4.9)
[2021-05-14 12:00] VITALS: BP 99/48
[2021-05-14 16:00] VITALS: BP 116/39
[2021-05-14] MEDS: DOCUSATE SODIUM SUGAR FREE 100MG/10ML UDC PO SCH (18:28)
[2021-05-14 20:00] VITALS: BP 128/50
[2021-05-14] MEDS: MORPHINE SULFATE 15MG TABLET SR PO SCH (20:45)
[2021-05-14] MEDS: AMOXICILLIN 250MG CAPSULE PO SCH (20:46)
[2021-05-14] MEDS ORDERED: FAMOTIDINE 20MG TABLET PO SCH (21:00)
[2021-05-15] VITALS: BP 137/53
[2021-05-15 04:00] VITALS: BP 130/58
[2021-05-15] MEDS: AMOXICILLIN 250MG CAPSULE PO SCH ×3 (05:28→21:20)
[2021-05-15] MEDS: SODIUM CHLORIDE 0.9% INJ 3ML FLUSH IVF SCH ×3 (05:28→21:21)
[2021-05-15] MEDS: HYDROMORPHONE HCL/PF 2MG/ML CPJ IV PRN (05:31)
[2021-05-15] MEDS: DOCUSATE SODIUM SUGAR FREE 100MG/10ML UDC PO SCH ×3 (09:09→17:45)
[2021-05-15] MEDS: SODIUM CHLORIDE 1000MG TABLET PO SCH ×2 (09:10→14:23)
[2021-05-15] MEDS: FAMOTIDINE 20MG TABLET PO SCH ×2 (09:10→14:23)
[2021-05-15] MEDS: AMLODIPINE 5MG TABLET PO SCH ×3 (09:10→21:21)
[2021-05-15] MEDS: LOSARTAN POTASSIUM 50 MG TABLET PO SCH ×2 (09:10→14:22)
[2021-05-15] MEDS: ENOXAPARIN 30MG/0.3ML SYR SUBCUT SCH (09:11)
[2021-05-15 09:32] LABS: BASOPHILS % 0.7 % (0.0-2.0); EOSINOPHILS % 1.4 % (0.0-5.0); HEMATOCRIT. 24.6 % (36.0-48.0); HEMOGLOBIN. 8.2 g/dL (12.0-16.0); LYMPHOCYTES % 28.7 % (20.0-50.0); MEAN CORPUSCULAR HEMOGLOBIN 31.6 pg (28.0-32.0); MEAN CORPUSCULAR VOLUME 94.6 fL (81.0-99.0); MONOCYTES % 14.8 % (2.0-8.0); NEUTROPHILS % 54.4 % (40.0-76.0); PLATELET 292 x1000/uL (130-400); RED CELL DISTRIBUTION WIDTH 16.1 % (11.6-14.6)
[2021-05-15] MEDS ORDERED: IPRATROPIUM/ALBUTEROL 0.5-3(2.5)MG/3ML NEB HHN NR (10:00)
[2021-05-15] MEDS: SODIUM CHLORIDE 0.9% 1,000 ML IV SCH (11:16)
[2021-05-15 12:00] VITALS: BP 133/58
[2021-05-15] MEDS: MORPHINE SULFATE 15MG TABLET SR PO SCH ×2 (14:22→21:21)
[2021-05-15] MEDS ORDERED: POTASSIUM CHLORIDE INJ 40 MEQ in DEXT 5% WATER 250 ML IV NR (16:00)
[2021-05-15 16:15] VITALS: BP 120/56
[2021-05-15 20:00] VITALS: BP 118/56
[2021-05-16] VITALS (7 sets, daily range): BP systolic 105–130; BP diastolic 50–74
[2021-05-16] MEDS: AMOXICILLIN 250MG CAPSULE PO SCH ×3 (06:23→21:02)
[2021-05-16] MEDS: SODIUM CHLORIDE 0.9% INJ 3ML FLUSH IVF SCH ×3 (06:23→21:01)
[2021-05-16] MEDS: HYDROMORPHONE HCL/PF 2MG/ML CPJ IV PRN ×2 (06:24→12:46)
[2021-05-16] MEDS: SODIUM CHLORIDE 0.9% 1,000 ML IV SCH (06:25)
[2021-05-16 08:19] LABS: BASOPHILS % 0.4 % (0.0-2.0); EOSINOPHILS % 3.5 % (0.0-5.0); HEMOGLOBIN. 8.1 g/dL (12.0-16.0); LYMPHOCYTES % 35.9 % (20.0-50.0); MEAN CORPUSCULAR HEMOGLOBIN 31.2 pg (28.0-32.0); MEAN CORPUSCULAR VOLUME 93.1 fL (81.0-99.0); MEAN PLATELET VOLUME 6.9 fl (7.4-10.4); MONOCYTES % 13.5 % (2.0-8.0); NEUTROPHILS % 46.7 % (40.0-76.0); PLATELET 330 x1000/uL (130-400); RED BLOOD CELL COUNT 2.58 mill/uL (4.2-5.4); RED CELL DISTRIBUTION WIDTH 16.7 % (11.6-14.6)
[2021-05-16 08:27] LABS: CHLORIDE 117 mEq/L (98-107)
[2021-05-16 08:34] LABS: PHOSPHORUS 2.8 mg/dL (2.5-4.9)
[2021-05-16] MEDS: CALCIUM CARBONATE/VITAMIN D3 500MG TABLET PO SCH (08:55)
[2021-05-16] MEDS: FAMOTIDINE 20MG TABLET PO SCH (08:55)
[2021-05-16] MEDS: MORPHINE SULFATE 15MG TABLET SR PO SCH ×2 (08:55→21:00)
[2021-05-16] MEDS: ENOXAPARIN 30MG/0.3ML SYR SUBCUT SCH (08:56)
[2021-05-16] MEDS: CALCITONIN,SALMON, 3.7 ML NASAL SPRAY ONENSTRL SCH (08:56)
[2021-05-16] MEDS: AMLODIPINE 5MG TABLET PO SCH ×2 (09:00→21:00)
[2021-05-16] MEDS: LOSARTAN POTASSIUM 50 MG TABLET PO SCH (09:00)
[2021-05-16] MEDS: DOCUSATE SODIUM SUGAR FREE 100MG/10ML UDC PO SCH ×2 (09:00→17:00)
[2021-05-16] MEDS ORDERED: ACETAMINOPHEN 500MG TABLET PO SCH (20:25)
[2021-05-16 21:20] LABS: TOTAL IRON BINDING CAPACITY 154 ug/dL (250-450)
[2021-05-17] VITALS: BP 115/56
[2021-05-17] MEDS: SODIUM CHLORIDE 0.9% 1,000 ML IV SCH (03:23)
[2021-05-17 04:00] VITALS: BP 115/87
[2021-05-17] MEDS: AMOXICILLIN 250MG CAPSULE PO SCH ×3 (06:04→21:01)
[2021-05-17] MEDS: HYDROMORPHONE HCL/PF 2MG/ML CPJ IV PRN (06:05)
[2021-05-17] MEDS: SODIUM CHLORIDE 0.9% INJ 3ML FLUSH IVF SCH ×3 (06:05→21:02)
[2021-05-17 08:10] VITALS: BP 125/62
[2021-05-17] MEDS: DOCUSATE SODIUM SUGAR FREE 100MG/10ML UDC PO SCH ×2 (09:22→17:16)
[2021-05-17] MEDS: FAMOTIDINE 20MG TABLET PO SCH (09:23)
[2021-05-17] MEDS: ENOXAPARIN 40MG/0.4ML SYR SUBCUT SCH (09:23)
[2021-05-17] MEDS: CALCIUM CARBONATE/VITAMIN D3 500MG TABLET PO SCH (09:23)
[2021-05-17] MEDS: ACETAMINOPHEN 500MG TABLET PO SCH ×3 (09:23→17:16)
[2021-05-17] MEDS: AMLODIPINE 5MG TABLET PO SCH ×2 (09:23→21:00)
[2021-05-17] MEDS: LOSARTAN POTASSIUM 50 MG TABLET PO SCH (09:23)
[2021-05-17] MEDS: CALCITONIN,SALMON, 3.7 ML NASAL SPRAY ONENSTRL SCH (09:24)
[2021-05-17 10:19] LABS: BASOPHILS % 0.9 % (0.0-2.0); LYMPHOCYTES % 26.3 % (20.0-50.0); MEAN CORPUSCULAR HEMOGLOBIN 32.2 pg (28.0-32.0); MEAN CORPUSCULAR VOLUME 92.6 fL (81.0-99.0); MEAN PLATELET VOLUME 6.7 fl (7.4-10.4); NEUTROPHILS % 57.8 % (40.0-76.0); PLATELET 324 x1000/uL (130-400); RED BLOOD CELL COUNT 2.48 mill/uL (4.2-5.4); RED CELL DISTRIBUTION WIDTH 16.8 % (11.6-14.6)
[2021-05-17] MEDS: MORPHINE SULFATE 15MG TABLET SR PO SCH ×2 (10:30→21:03)
[2021-05-17 12:06] VITALS: BP 148/58
[2021-05-17 14:02] LABS: FOLIC ACID (FOLATE) SERUM >20 ng/mL ng/mL (>5.38)
[2021-05-17 14:13] LABS: VITAMIN B12 SERUM 1937 pg/mL (211-911)
[2021-05-17 16:20] VITALS: BP 114/41
[2021-05-17] MEDS: DEXAMETHASONE 4MG/ML 1ML VIAL IV SCH (17:17)
[2021-05-17 18:02] LABS: CHLORIDE 118 mEq/L (98-107)
[2021-05-17 20:00] VITALS: BP 96/67
[2021-05-17] MEDS: ONDANSETRON HCL 4MG/2ML INJ IV PRN (20:25)
[2021-05-18] VITALS: BP 90/42
[2021-05-18] MEDS: DEXAMETHASONE 4MG/ML 1ML VIAL IV SCH ×4 (00:10→17:04)
[2021-05-18] MEDS: SODIUM CHLORIDE 0.9% 1,000 ML IV SCH (00:29)
[2021-05-18 04:00] VITALS: BP 110/59
[2021-05-18] MEDS: AMOXICILLIN 250MG CAPSULE PO SCH ×2 (05:19→13:18)
[2021-05-18] MEDS: SODIUM CHLORIDE 0.9% INJ 3ML FLUSH IVF SCH ×2 (05:20→13:18)
[2021-05-18] MEDS: HYDROMORPHONE HCL/PF 2MG/ML CPJ IV PRN (05:58)
[2021-05-18 08:00] VITALS: BP 153/39
[2021-05-18] MEDS: CALCITONIN,SALMON, 3.7 ML NASAL SPRAY ONENSTRL SCH (09:24)
[2021-05-18] MEDS: ENOXAPARIN 40MG/0.4ML SYR SUBCUT SCH (09:24)
[2021-05-18] MEDS: DOCUSATE SODIUM SUGAR FREE 100MG/10ML UDC PO SCH ×2 (09:24→17:04)
[2021-05-18] MEDS: CALCIUM CARBONATE/VITAMIN D3 500MG TABLET PO SCH (09:24)
[2021-05-18] MEDS: LOSARTAN POTASSIUM 50 MG TABLET PO SCH (09:24)
[2021-05-18] MEDS: FAMOTIDINE 20MG TABLET PO SCH (09:25)
[2021-05-18] MEDS: MORPHINE SULFATE 15MG TABLET SR PO SCH (09:25)
[2021-05-18] MEDS: AMLODIPINE 5MG TABLET PO SCH (09:25)
[2021-05-18] MEDS: ACETAMINOPHEN 500MG TABLET PO SCH ×4 (09:27→17:34)
[2021-05-18 12:20] VITALS: BP 140/59
[2021-05-18] MEDS: LACTULOSE 20G/30ML UDC PO SCH ×2 (14:53→17:04)
[2021-05-18 16:00] VITALS: BP 112/57
[2021-05-18 16:46] VITALS: BP 112/57
== END 2021-05-18 18:00 | DRG 341 ==
LOC: ER 13:36 → ENRESERV 23:44 → CANRESERV 23:44 → EDBEDREQSVC 05-11 00:20 → EDBEDREQTM 05-11 00:20 → MICUSO 05-11 15:33 → 6WST 05-11 19:27
PROVIDERS: ADMIT Internal Medicine; ATTEND Internal Medicine
DX: S32.502A Unspecified fracture of left pubis, initial encounter for closed fracture (principal); N17.0 Acute kidney failure with tubular necrosis; G93.41 Metabolic encephalopathy; G82.50 Quadriplegia, unspecified; E46 Unspecified protein-calorie malnutrition; E87.2 Acidosis; J18.9 Pneumonia, unspecified organism; E87.1 Hypo-osmolality and hyponatremia; L89.156 Pressure-induced deep tissue damage of sacral region; S32.021A Stable burst fracture of second lumbar vertebra, initial encounter for closed fracture; S32.501A Unspecified fracture of right pubis, initial encounter for closed fracture; S32.592A Other specified fracture of left pubis, initial encounter for closed fracture; S32.591A Other specified fracture of right pubis, initial encounter for closed fracture; D64.9 Anemia, unspecified; S30.0XXA Contusion of lower back and pelvis, initial encounter; J84.10 Pulmonary fibrosis, unspecified; E87.8 Other disorders of electrolyte and fluid balance, not elsewhere classified; W01.0XXA Fall on same level from slipping, tripping and stumbling without subsequent striking against object, initial encounter; Y93.01 Activity, walking, marching and hiking; E87.5 Hyperkalemia; I10 Essential (primary) hypertension; K57.90 Diverticulosis of intestine, part unspecified, without perforation or abscess without bleeding; M19.90 Unspecified osteoarthritis, unspecified site; R13.10 Dysphagia, unspecified; N39.0 Urinary tract infection, site not specified; R26.9 Unspecified abnormalities of gait and mobility; L89.159 Pressure ulcer of sacral region, unspecified stage; F03.90 Unspecified dementia, unspecified severity, without behavioral disturbance, psychotic disturbance, mood disturbance, and anxiety; K21.9 Gastro-esophageal reflux disease without esophagitis; E11.9 Type 2 diabetes mellitus without complications; M81.0 Age-related osteoporosis without current pathological fracture; M48.061 Spinal stenosis, lumbar region without neurogenic claudication; Z86.73 Personal history of transient ischemic attack (TIA), and cerebral infarction without residual deficits; Z79.899 Other long term (current) drug therapy; Z68.28 Body mass index [BMI] 28.0-28.9, adult; Z82.49 Family history of ischemic heart disease and other diseases of the circulatory system; Y92.89 Other specified places as the place of occurrence of the external cause; Y99.8 Other external cause status
CPT/HCPCS: 36415; 70551; 72128; 72146; 72148; 72192; 73700; 76770; 80048; 80053; 80061; 81003; 82040; 82550; 82570; 82607; 82652; 82746; 83036; 83540; 83550; 83735; 83930; 83935; 84100; 84134; 84145; 84207; 84300; 84443; 84484; 85025; 85651; 86140; 87077; 92610; 93005; 93970; 94640; 97162; 97166; 99285; C1893; C9113; J1100; J1170; J1650; J2270; J2405; J3480; J7030; J7060; A4315

== ENCOUNTER 2021-05-18 18:05 | Inpatient (IN) | payer MEDICARE, MEDICAID ==
[~2021-05-18] VITALS: Ht 167.6 cm; Wt 81.2 kg
[2021-05-18 19:00] VITALS: BP 142/83
[2021-05-18] MEDS ORDERED: MAGNESIUM HYDROXIDE 400MG/5ML 30ML UDC PO PRN (19:30)
[2021-05-18] MEDS ORDERED: HYDROCODONE/ACETAMINOPHEN 5/325MG TABLET PO PRN (19:30)
[2021-05-18] MEDS ORDERED: DIPHENHYDRAMINE 50MG/ML VIAL IV PRN (19:30)
[2021-05-18] MEDS ORDERED: NALOXONE HCL 0.4 MG/ML 1ML VIAL IV PRN (19:30)
[2021-05-18] MEDS ORDERED: ONDANSETRON HCL 4MG/2ML INJ IV PRN (19:30)
[2021-05-18] MEDS ORDERED: MAGNESIUM/ALUMINUM HYDROXIDE/SIMETHICONE 30ML UDC PO PRN (19:30)
[2021-05-18] MEDS ORDERED: ACETAMINOPHEN 325MG TABLET PO PRN (19:30)
[2021-05-18] MEDS ORDERED: CLONIDINE 0.1MG TABLET PO PRN (19:30)
[2021-05-18 20:00] VITALS: BP 142/83
[2021-05-18] MEDS ORDERED: LACTULOSE 20G/30ML UDC PO SCH (20:00)
[2021-05-18] MEDS: SODIUM CHLORIDE 1000MG TABLET PO SCH (20:55)
[2021-05-18] MEDS: AMOXICILLIN 250MG CAPSULE PO SCH (21:02)
[2021-05-18] MEDS: AMLODIPINE 5MG TABLET PO SCH (21:02)
[2021-05-18] MEDS: SODIUM CHLORIDE 0.9% INJ 3ML FLUSH IVF SCH (21:02)
[2021-05-19] MEDS ORDERED: DEXAMETHASONE 4MG/ML 1ML VIAL IV SCH
[2021-05-19] MEDS: DEXAMETHASONE 4MG/ML 1ML VIAL IV SCH ×2 (00:24→06:04)
[2021-05-19] MEDS: AMOXICILLIN 250MG CAPSULE PO SCH ×3 (06:04→21:54)
[2021-05-19] MEDS: SODIUM CHLORIDE 0.9% INJ 3ML FLUSH IVF SCH ×3 (06:05→21:57)
[2021-05-19 07:17] LABS: HEMATOCRIT. 25.5 % (36.0-48.0); HEMOGLOBIN. 8.7 g/dL (12.0-16.0); MEAN CORPUSCULAR HEMOGLOBIN 31.4 pg (28.0-32.0); MEAN CORPUSCULAR VOLUME 92.1 fL (81.0-99.0); MEAN PLATELET VOLUME 7.1 fl (7.4-10.4); MONOCYTES % 5.5 % (2.0-8.0); NEUTROPHILS % 81.5 % (40.0-76.0); PLATELET 430 x1000/uL (130-400); RED BLOOD CELL COUNT 2.77 mill/uL (4.2-5.4); RED CELL DISTRIBUTION WIDTH 16.7 % (11.6-14.6)
[2021-05-19 07:33] LABS: CHLORIDE 119 mEq/L (98-107)
[2021-05-19 07:55] LABS: CLARITY URINE CLEAR (CLEAR); COLOR URINE YELLOW (YELLOW); KETONES URINE NEGATIVE (NEGATIVE); LEUKOCYTE ESTERASE URINE NEGATIVE (NEGATIVE); NITRITE URINE NEGATIVE (NEGATIVE); OCCULT BLOOD URINE NEGATIVE (NEGATIVE); PH URINE 5.5 (4.5-8.0); PROTEIN URINE NEGATIVE (NEGATIVE); SPECIFIC GRAVITY URINE 1.017 (1.005-1.030)
[2021-05-19 08:00] VITALS: BP 154/75
[2021-05-19] MEDS: DOCUSATE SODIUM SUGAR FREE 100MG/10ML UDC PO SCH ×3 (08:42→17:35)
[2021-05-19] MEDS: FAMOTIDINE 20MG TABLET PO SCH (08:43)
[2021-05-19] MEDS: AMLODIPINE 5MG TABLET PO SCH ×2 (08:43→21:54)
[2021-05-19] MEDS: LOSARTAN POTASSIUM 50 MG TABLET PO SCH (08:43)
[2021-05-19] MEDS: SODIUM CHLORIDE 1000MG TABLET PO SCH ×2 (08:44→21:55)
[2021-05-19] MEDS: ACETAMINOPHEN 500MG TABLET PO SCH ×4 (08:44→17:36)
[2021-05-19] MEDS: CALCIUM CARBONATE/VITAMIN D3 500MG TABLET PO SCH (08:44)
[2021-05-19] MEDS: ENOXAPARIN 40MG/0.4ML SYR SUBCUT SCH (08:45)
[2021-05-19] MEDS: CALCITONIN,SALMON, 3.7 ML NASAL SPRAY ONENSTRL SCH (08:59)
[2021-05-19] MEDS ORDERED: DEXAMETHASONE 4MG/ML 1ML VIAL PO SCH (12:00)
[2021-05-19] MEDS: DEXAMETHASONE 1MG TABLET PO SCH ×3 (14:29→17:42)
[2021-05-19 17:11] LABS: HEMATOCRIT. 23.7 % (36.0-48.0); HEMOGLOBIN. 8.1 g/dL (12.0-16.0); LYMPHOCYTES % 10.5 % (20.0-50.0); MEAN CORPUSCULAR HEMOGLOBIN 31.5 pg (28.0-32.0); MEAN CORPUSCULAR VOLUME 91.6 fL (81.0-99.0); MEAN PLATELET VOLUME 6.9 fl (7.4-10.4); MONOCYTES % 5.9 % (2.0-8.0); NEUTROPHILS % 83.6 % (40.0-76.0); PLATELET 436 x1000/uL (130-400); RED BLOOD CELL COUNT 2.59 mill/uL (4.2-5.4); RED CELL DISTRIBUTION WIDTH 16.6 % (11.6-14.6)
[2021-05-19 17:18] LABS: CHLORIDE 119 mEq/L (98-107)
[2021-05-19] MEDS: SODIUM CHLORIDE 0.9% 1,000 ML IV NR (18:37)
[2021-05-19 20:00] VITALS: BP 152/63
[2021-05-20] MEDS: DEXAMETHASONE 1MG TABLET PO SCH ×4 (00:44→17:19)
[2021-05-20] MEDS: SODIUM CHLORIDE 0.9% 1,000 ML IV NR (05:54)
[2021-05-20] MEDS: SODIUM CHLORIDE 0.9% INJ 3ML FLUSH IVF SCH ×3 (05:57→21:29)
[2021-05-20 08:00] VITALS: BP 141/49
[2021-05-20] MEDS: DOCUSATE SODIUM SUGAR FREE 100MG/10ML UDC PO SCH ×3 (08:52→17:19)
[2021-05-20] MEDS: LOSARTAN POTASSIUM 50 MG TABLET PO SCH (08:53)
[2021-05-20] MEDS: ACETAMINOPHEN 500MG TABLET PO SCH ×2 (08:53→12:23)
[2021-05-20] MEDS: ENOXAPARIN 40MG/0.4ML SYR SUBCUT SCH (08:53)
[2021-05-20] MEDS: CALCITONIN,SALMON, 3.7 ML NASAL SPRAY ONENSTRL SCH (08:53)
[2021-05-20] MEDS: FAMOTIDINE 20MG TABLET PO SCH (08:54)
[2021-05-20] MEDS: CALCIUM CARBONATE/VITAMIN D3 500MG TABLET PO SCH (08:54)
[2021-05-20] MEDS: AMLODIPINE 5MG TABLET PO SCH ×2 (08:54→21:28)
[2021-05-20] MEDS: LIDOCAINE 5% PATCH TOP SCH (08:58)
[2021-05-20] MEDS: SODIUM CHLORIDE 1000MG TABLET PO SCH ×2 (08:58→21:28)
[2021-05-20 15:08] LABS: CHLORIDE 111 mEq/L (98-107)
[2021-05-20] MEDS: TRAMADOL 50MG TABLET PO PRN (15:17)
[2021-05-20 15:19] LABS: BASOPHILS % 0.1 % (0.0-2.0); HEMATOCRIT. 23.1 % (36.0-48.0); HEMOGLOBIN. 8.1 g/dL (12.0-16.0); MEAN CORPUSCULAR HEMOGLOBIN 31.4 pg (28.0-32.0); MEAN CORPUSCULAR VOLUME 90.3 fL (81.0-99.0); MEAN PLATELET VOLUME 7.1 fl (7.4-10.4); MONOCYTES % 4.3 % (2.0-8.0); NEUTROPHILS % 82.6 % (40.0-76.0); PLATELET 398 x1000/uL (130-400); RED BLOOD CELL COUNT 2.56 mill/uL (4.2-5.4); T4 FREE 0.92 ng/dL (0.76-1.46)
[2021-05-20 15:29] LABS: FOLIC ACID (FOLATE) SERUM >20 ng/mL ng/mL (>5.38)
[2021-05-20 15:41] LABS: VITAMIN B12 SERUM 1711 pg/mL (211-911)
[2021-05-20 20:30] VITALS: BP 141/67
[2021-05-20] MEDS: LACTULOSE 20G/30ML UDC PO SCH ×2 (21:28→21:33)
[2021-05-21] MEDS: SODIUM CHLORIDE 0.9% INJ 3ML FLUSH IVF SCH ×3 (06:00→21:50)
[2021-05-21] MEDS: DEXAMETHASONE 1MG TABLET PO SCH ×2 (06:00)
[2021-05-21] MEDS: LACTULOSE 20G/30ML UDC PO SCH ×3 (06:00→21:50)
[2021-05-21 08:12] VITALS: BP 137/65
[2021-05-21] MEDS: DOCUSATE SODIUM SUGAR FREE 100MG/10ML UDC PO SCH ×2 (08:46→17:41)
[2021-05-21] MEDS: ENOXAPARIN 40MG/0.4ML SYR SUBCUT SCH (08:46)
[2021-05-21] MEDS: AMLODIPINE 5MG TABLET PO SCH ×2 (08:46→21:50)
[2021-05-21] MEDS: CALCIUM CARBONATE/VITAMIN D3 500MG TABLET PO SCH (08:47)
[2021-05-21] MEDS: FAMOTIDINE 20MG TABLET PO SCH (08:47)
[2021-05-21] MEDS: SODIUM CHLORIDE 1000MG TABLET PO SCH ×2 (08:47→21:50)
[2021-05-21] MEDS: LOSARTAN POTASSIUM 50 MG TABLET PO SCH (08:47)
[2021-05-21] MEDS: HYDROCODONE/ACETAMINOPHEN 5/325MG TABLET PO PRN (08:48)
[2021-05-21] MEDS: LIDOCAINE 5% PATCH TOP SCH (08:48)
[2021-05-21] MEDS: CALCITONIN,SALMON, 3.7 ML NASAL SPRAY ONENSTRL SCH (09:00)
[2021-05-21] MEDS: DEXAMETHASONE 2MG TABLET PO SCH ×2 (12:48→17:41)
[2021-05-21 20:00] VITALS: BP 152/63
[2021-05-22] MEDS: SODIUM CHLORIDE 0.9% INJ 3ML FLUSH IVF SCH ×3 (06:00→22:08)
[2021-05-22] MEDS: LACTULOSE 20G/30ML UDC PO SCH ×3 (06:45→22:08)
[2021-05-22] MEDS: DEXAMETHASONE 2MG TABLET PO SCH ×4 (06:45→18:49)
[2021-05-22] MEDS: TRAMADOL 50MG TABLET PO PRN (06:45)
[2021-05-22 08:20] VITALS: BP 141/59
[2021-05-22] MEDS: FAMOTIDINE 20MG TABLET PO SCH (08:56)
[2021-05-22] MEDS: CALCIUM CARBONATE/VITAMIN D3 500MG TABLET PO SCH (08:56)
[2021-05-22] MEDS: LOSARTAN POTASSIUM 50 MG TABLET PO SCH (08:56)
[2021-05-22] MEDS: DOCUSATE SODIUM SUGAR FREE 100MG/10ML UDC PO SCH ×2 (08:56→18:50)
[2021-05-22] MEDS: LIDOCAINE 5% PATCH TOP SCH (08:57)
[2021-05-22] MEDS: AMLODIPINE 5MG TABLET PO SCH ×2 (08:57→22:08)
[2021-05-22] MEDS: HYDROCODONE/ACETAMINOPHEN 5/325MG TABLET PO PRN (08:58)
[2021-05-22] MEDS: SODIUM CHLORIDE 1000MG TABLET PO SCH ×2 (09:12→22:08)
[2021-05-22] MEDS: ENOXAPARIN 40MG/0.4ML SYR SUBCUT SCH (09:12)
[2021-05-22] MEDS: CALCITONIN,SALMON, 3.7 ML NASAL SPRAY ONENSTRL SCH (09:21)
[2021-05-22] MEDS ORDERED: BISACODYL 10MG SUPP PR NR (15:15)
[2021-05-22 20:00] VITALS: BP 155/62
[2021-05-23] MEDS: DEXAMETHASONE 2MG TABLET PO SCH (01:23)
[2021-05-23 08:00] VITALS: BP 110/62
[2021-05-23] MEDS: DOCUSATE SODIUM SUGAR FREE 100MG/10ML UDC PO SCH ×2 (09:00→16:55)
[2021-05-23] MEDS: SODIUM CHLORIDE 1000MG TABLET PO SCH ×2 (09:00→21:00)
[2021-05-23] MEDS: AMLODIPINE 5MG TABLET PO SCH ×2 (09:00→21:00)
[2021-05-23] MEDS: LOSARTAN POTASSIUM 50 MG TABLET PO SCH (09:00)
[2021-05-23] MEDS: CALCITONIN,SALMON, 3.7 ML NASAL SPRAY ONENSTRL SCH (09:00)
[2021-05-23] MEDS: LIDOCAINE 5% PATCH TOP SCH (10:11)
[2021-05-23] MEDS: HYDROCODONE/ACETAMINOPHEN 5/325MG TABLET PO PRN (10:11)
[2021-05-23] MEDS: LACTULOSE 20G/30ML UDC PO SCH ×3 (10:12→22:00)
[2021-05-23] MEDS: ENOXAPARIN 40MG/0.4ML SYR SUBCUT SCH (10:12)
[2021-05-23] MEDS: CALCIUM CARBONATE/VITAMIN D3 500MG TABLET PO SCH (13:36)
[2021-05-23] MEDS: FAMOTIDINE 20MG TABLET PO SCH (13:40)
[2021-05-23] MEDS: DEXAMETHASONE 1MG TABLET PO SCH ×2 (13:42→16:51)
[2021-05-23] MEDS ORDERED: NALOXONE HCL 0.4 MG/ML 1ML VIAL IV PRN (14:45)
[2021-05-23] MEDS: OXYCODONE HCL 5MG TABLET PO SCH ×2 (16:55→22:00)
[2021-05-23 19:09] LABS: 25-HYDROXY VITAMIN D3 25 ng/mL (.)
[2021-05-23 20:00] VITALS: BP 156/67
[2021-05-23 20:38] LABS: CLARITY URINE TURBID (CLEAR); COLOR URINE DARK YELLOW (YELLOW); KETONES URINE NEGATIVE (NEGATIVE); LEUKOCYTE ESTERASE URINE 3+ (NEGATIVE); NITRITE URINE POSITIVE (NEGATIVE); OCCULT BLOOD URINE 1+ (NEGATIVE); PH URINE 7.5 (4.5-8.0); PROTEIN URINE 1+ (NEGATIVE); SPECIFIC GRAVITY URINE 1.017 (1.005-1.030)
[2021-05-24] MEDS: LACTULOSE 20G/30ML UDC PO SCH ×3 (06:38→21:24)
[2021-05-24] MEDS: DEXAMETHASONE 1MG TABLET PO SCH ×5 (06:38→23:53)
[2021-05-24] MEDS: OXYCODONE HCL 5MG TABLET PO SCH ×3 (06:46→21:26)
[2021-05-24 08:00] VITALS: BP 111/77
[2021-05-24] MEDS: CALCITONIN,SALMON, 3.7 ML NASAL SPRAY ONENSTRL SCH (09:00)
[2021-05-24] MEDS: ENOXAPARIN 40MG/0.4ML SYR SUBCUT SCH (09:00)
[2021-05-24] MEDS ORDERED: LEVOFLOXACIN 500MG TABLET PO SCH ×2 (11:00)
[2021-05-24] MEDS: DOCUSATE SODIUM SUGAR FREE 100MG/10ML UDC PO SCH ×2 (11:43→17:55)
[2021-05-24] MEDS: CALCIUM CARBONATE/VITAMIN D3 500MG TABLET PO SCH (11:44)
[2021-05-24] MEDS: AMLODIPINE 5MG TABLET PO SCH ×2 (11:45→21:25)
[2021-05-24] MEDS: LIDOCAINE 5% PATCH TOP SCH (11:45)
[2021-05-24] MEDS ORDERED: LEVOFLOXACIN 250MG TABLET PO SCH (12:45)
[2021-05-24] MEDS: FAMOTIDINE 20MG TABLET PO SCH (14:29)
[2021-05-24] MEDS: LOSARTAN POTASSIUM 50 MG TABLET PO SCH (14:29)
[2021-05-24 16:16] LABS: EOSINOPHILS % 0.2 % (0.0-5.0); HEMATOCRIT. 26.2 % (36.0-48.0); HEMOGLOBIN. 8.6 g/dL (12.0-16.0); LYMPHOCYTES % 14.3 % (20.0-50.0); MEAN CORPUSCULAR HEMOGLOBIN 30.4 pg (28.0-32.0); MEAN PLATELET VOLUME 7.4 fl (7.4-10.4); MONOCYTES % 8.3 % (2.0-8.0); NEUTROPHILS % 77.2 % (40.0-76.0); PLATELET 412 x1000/uL (130-400); RED BLOOD CELL COUNT 2.84 mill/uL (4.2-5.4); RED CELL DISTRIBUTION WIDTH 17.7 % (11.6-14.6)
[2021-05-24 16:23] LABS: CHLORIDE 111 mEq/L (98-107)
[2021-05-24 20:00] VITALS: BP 124/65
[2021-05-25] MEDS: LACTULOSE 20G/30ML UDC PO SCH (06:32)
[2021-05-25] MEDS: OXYCODONE HCL 5MG TABLET PO SCH ×3 (06:33→21:28)
[2021-05-25] MEDS: DEXAMETHASONE 1MG TABLET PO SCH ×3 (06:33→18:00)
[2021-05-25 08:23] VITALS: BP 103/48
[2021-05-25 08:23] LABS: BASOPHILS % 0.1 % (0.0-2.0); EOSINOPHILS % 0.2 % (0.0-5.0); HEMATOCRIT. 27.2 % (36.0-48.0); HEMOGLOBIN. 8.7 g/dL (12.0-16.0); LYMPHOCYTES % 10.4 % (20.0-50.0); MEAN CORPUSCULAR HEMOGLOBIN 30.1 pg (28.0-32.0); MEAN CORPUSCULAR VOLUME 94.1 fL (81.0-99.0); MEAN PLATELET VOLUME 7.8 fl (7.4-10.4); MONOCYTES % 6.8 % (2.0-8.0); NEUTROPHILS % 82.5 % (40.0-76.0); PLATELET 363 x1000/uL (130-400); RED CELL DISTRIBUTION WIDTH 17.9 % (11.6-14.6)
[2021-05-25 08:28] LABS: CHLORIDE 113 mEq/L (98-107)
[2021-05-25] MEDS: CALCITONIN,SALMON, 3.7 ML NASAL SPRAY ONENSTRL SCH (09:00)
[2021-05-25] MEDS: ENOXAPARIN 40MG/0.4ML SYR SUBCUT SCH (09:00)
[2021-05-25] MEDS: LIDOCAINE 5% PATCH TOP SCH (09:00)
[2021-05-25] MEDS: CALCIUM CARBONATE/VITAMIN D3 500MG TABLET PO SCH (10:22)
[2021-05-25] MEDS: AMLODIPINE 5MG TABLET PO SCH ×2 (10:22→20:15)
[2021-05-25] MEDS: LOSARTAN POTASSIUM 50 MG TABLET PO SCH (10:22)
[2021-05-25] MEDS: FAMOTIDINE 20MG TABLET PO SCH (10:22)
[2021-05-25] MEDS: DOCUSATE SODIUM SUGAR FREE 100MG/10ML UDC PO SCH ×2 (10:23→18:01)
[2021-05-25] MEDS ORDERED: LEVOFLOXACIN 250MG TABLET PO SCH (11:00)
[2021-05-25] MEDS: LEVOFLOXACIN 250MG TABLET PO SCH (12:07)
[2021-05-25 20:00] VITALS: BP 115/49
[2021-05-26] MEDS: OXYCODONE HCL 5MG TABLET PO SCH ×3 (05:16→22:00)
[2021-05-26 07:19] VITALS: BP 128/51
[2021-05-26] MEDS: DOCUSATE SODIUM SUGAR FREE 100MG/10ML UDC PO SCH ×2 (08:58→17:00)
[2021-05-26] MEDS: DEXAMETHASONE 1MG TABLET PO SCH ×3 (09:00→17:00)
[2021-05-26] MEDS: AMLODIPINE 5MG TABLET PO SCH ×2 (09:02→21:00)
[2021-05-26] MEDS: CALCIUM CARBONATE/VITAMIN D3 500MG TABLET PO SCH (09:02)
[2021-05-26] MEDS: FAMOTIDINE 20MG TABLET PO SCH (09:03)
[2021-05-26] MEDS: ENOXAPARIN 40MG/0.4ML SYR SUBCUT SCH (09:03)
[2021-05-26] MEDS: ACETAMINOPHEN 325MG TABLET PO PRN (09:04)
[2021-05-26] MEDS: LIDOCAINE 5% PATCH TOP SCH (09:12)
[2021-05-26] MEDS: CALCITONIN,SALMON, 3.7 ML NASAL SPRAY ONENSTRL SCH (09:16)
[2021-05-26] MEDS: LEVOFLOXACIN 250MG TABLET PO SCH (14:37)
[2021-05-26] MEDS: LOSARTAN POTASSIUM 50 MG TABLET PO SCH (17:57)
[2021-05-26 20:00] VITALS: BP 127/55
[2021-05-27] MEDS: OXYCODONE HCL 5MG TABLET PO SCH ×3 (06:00→21:08)
[2021-05-27 08:06] VITALS: BP 135/75
[2021-05-27] MEDS: DEXAMETHASONE 1MG TABLET PO SCH ×2 (10:23→17:00)
[2021-05-27] MEDS: DOCUSATE SODIUM SUGAR FREE 100MG/10ML UDC PO SCH ×2 (10:23→17:00)
[2021-05-27] MEDS: CALCITONIN,SALMON, 3.7 ML NASAL SPRAY ONENSTRL SCH (10:23)
[2021-05-27] MEDS: ENOXAPARIN 40MG/0.4ML SYR SUBCUT SCH (10:26)
[2021-05-27] MEDS: LIDOCAINE 5% PATCH TOP SCH ×3 (10:26→18:07)
[2021-05-27] MEDS: CALCIUM CARBONATE/VITAMIN D3 500MG TABLET PO SCH (10:27)
[2021-05-27] MEDS: FAMOTIDINE 20MG TABLET PO SCH (10:27)
[2021-05-27] MEDS: LOSARTAN POTASSIUM 50 MG TABLET PO SCH (10:27)
[2021-05-27] MEDS: AMLODIPINE 5MG TABLET PO SCH ×2 (10:27→21:08)
[2021-05-27] MEDS: LEVOFLOXACIN 250MG TABLET PO SCH (11:00)
[2021-05-27] MEDS: ACETAMINOPHEN 325MG TABLET PO PRN (18:05)
[2021-05-27 20:00] VITALS: BP 119/57
[2021-05-28] MEDS: OXYCODONE HCL 5MG TABLET PO SCH ×3 (06:00→23:39)
[2021-05-28 07:12] LABS: BASOPHILS % 0.4 % (0.0-2.0); EOSINOPHILS % 1.8 % (0.0-5.0); HEMATOCRIT. 25.5 % (36.0-48.0); HEMOGLOBIN. 8.7 g/dL (12.0-16.0); MEAN CORPUSCULAR HEMOGLOBIN 31.2 pg (28.0-32.0); MEAN CORPUSCULAR VOLUME 92.1 fL (81.0-99.0); MEAN PLATELET VOLUME 8.2 fl (7.4-10.4); MONOCYTES % 11.3 % (2.0-8.0); NEUTROPHILS % 47.5 % (40.0-76.0); PLATELET 345 x1000/uL (130-400); RED BLOOD CELL COUNT 2.77 mill/uL (4.2-5.4); RED CELL DISTRIBUTION WIDTH 17.6 % (11.6-14.6)
[2021-05-28 07:18] LABS: CHLORIDE 112 mEq/L (98-107)
[2021-05-28 07:57] VITALS: BP 110/51
[2021-05-28] MEDS: LIDOCAINE 5% PATCH TOP SCH (09:00)
[2021-05-28] MEDS: CALCITONIN,SALMON, 3.7 ML NASAL SPRAY ONENSTRL SCH (09:00)
[2021-05-28] MEDS: DOCUSATE SODIUM SUGAR FREE 100MG/10ML UDC PO SCH ×2 (10:01→18:07)
[2021-05-28] MEDS: ENOXAPARIN 40MG/0.4ML SYR SUBCUT SCH (10:01)
[2021-05-28] MEDS: FAMOTIDINE 20MG TABLET PO SCH (10:02)
[2021-05-28] MEDS: LOSARTAN POTASSIUM 50 MG TABLET PO SCH (10:02)
[2021-05-28] MEDS: CALCIUM CARBONATE/VITAMIN D3 500MG TABLET PO SCH (10:02)
[2021-05-28] MEDS: AMLODIPINE 5MG TABLET PO SCH ×2 (10:02→20:28)
[2021-05-28] MEDS: DEXAMETHASONE 1MG TABLET PO SCH ×2 (10:03→18:07)
[2021-05-28] MEDS: LEVOFLOXACIN 250MG TABLET PO SCH (10:10)
[2021-05-28] MEDS ORDERED: ERGOCALCIFEROL 50000UNITS CAPSULE PO SCH (17:00)
[2021-05-28] MEDS: ACETAMINOPHEN 325MG TABLET PO PRN (19:49)
[2021-05-28 20:00] VITALS: BP 118/59
[2021-05-29 08:02] VITALS: BP 132/54
[2021-05-29] MEDS: DOCUSATE SODIUM SUGAR FREE 100MG/10ML UDC PO SCH ×3 (09:00→16:40)
[2021-05-29] MEDS: LIDOCAINE 5% PATCH TOP SCH ×2 (09:00→09:22)
[2021-05-29] MEDS: FAMOTIDINE 20MG TABLET PO SCH (09:17)
[2021-05-29] MEDS: AMLODIPINE 5MG TABLET PO SCH ×2 (09:17→21:01)
[2021-05-29] MEDS: DEXAMETHASONE 1MG TABLET PO SCH (09:18)
[2021-05-29] MEDS: OXYCODONE HCL 5MG TABLET PO SCH ×3 (09:20→23:28)
[2021-05-29] MEDS: CALCIUM CARBONATE/VITAMIN D3 500MG TABLET PO SCH (09:20)
[2021-05-29] MEDS: LOSARTAN POTASSIUM 50 MG TABLET PO SCH (09:20)
[2021-05-29] MEDS: CALCITONIN,SALMON, 3.7 ML NASAL SPRAY ONENSTRL SCH (09:21)
[2021-05-29] MEDS: ENOXAPARIN 40MG/0.4ML SYR SUBCUT SCH (09:43)
[2021-05-29] MEDS: LEVOFLOXACIN 250MG TABLET PO SCH (11:54)
[2021-05-29 15:17] VITALS: BP 115/43
[2021-05-29] MEDS: ACETAMINOPHEN 325MG TABLET PO PRN (19:10)
[2021-05-29 20:00] VITALS: BP 130/50
[2021-05-30] MEDS: OXYCODONE HCL 5MG TABLET PO SCH ×3 (06:55→23:51)
[2021-05-30 08:17] VITALS: BP 106/49
[2021-05-30] MEDS: CALCIUM CARBONATE/VITAMIN D3 500MG TABLET PO SCH (08:24)
[2021-05-30] MEDS: ENOXAPARIN 40MG/0.4ML SYR SUBCUT SCH (08:25)
[2021-05-30] MEDS: FAMOTIDINE 20MG TABLET PO SCH (08:25)
[2021-05-30] MEDS: LIDOCAINE 5% PATCH TOP SCH ×2 (08:26→08:52)
[2021-05-30] MEDS: LOSARTAN POTASSIUM 50 MG TABLET PO SCH (08:27)
[2021-05-30] MEDS: AMLODIPINE 5MG TABLET PO SCH ×2 (08:27→21:39)
[2021-05-30] MEDS: DOCUSATE SODIUM SUGAR FREE 100MG/10ML UDC PO SCH ×3 (08:27→17:00)
[2021-05-30] MEDS: CALCITONIN,SALMON, 3.7 ML NASAL SPRAY ONENSTRL SCH (08:34)
[2021-05-30] MEDS ORDERED: DEXAMETHASONE 1MG TABLET PO SCH (09:00)
[2021-05-30] MEDS: LEVOFLOXACIN 250MG TABLET PO SCH (10:54)
[2021-05-30 20:00] VITALS: BP 125/59
[2021-05-30] MEDS: ACETAMINOPHEN 325MG TABLET PO PRN (21:38)
[2021-05-31] MEDS: OXYCODONE HCL 5MG TABLET PO SCH ×2 (06:30→14:58)
[2021-05-31 08:00] VITALS: BP 129/49
[2021-05-31] MEDS: CALCIUM CARBONATE/VITAMIN D3 500MG TABLET PO SCH (09:32)
[2021-05-31] MEDS: AMLODIPINE 5MG TABLET PO SCH (09:32)
[2021-05-31] MEDS: FAMOTIDINE 20MG TABLET PO SCH (09:32)
[2021-05-31] MEDS: LOSARTAN POTASSIUM 50 MG TABLET PO SCH (09:32)
[2021-05-31] MEDS: LIDOCAINE 5% PATCH TOP SCH (09:33)
[2021-05-31] MEDS: DOCUSATE SODIUM SUGAR FREE 100MG/10ML UDC PO SCH ×2 (09:37→16:40)
[2021-05-31] MEDS: ENOXAPARIN 40MG/0.4ML SYR SUBCUT SCH (09:37)
[2021-05-31] MEDS: CALCITONIN,SALMON, 3.7 ML NASAL SPRAY ONENSTRL SCH (09:37)
[2021-05-31] MEDS: ACETAMINOPHEN 325MG TABLET PO PRN (11:06)
[2021-05-31 13:42] VITALS: BP 126/65
[2021-05-31 14:58] VITALS: BP 126/65
== END 2021-05-31 17:00 | disposition home health service (06) | DRG 52 ==
PROVIDERS: ADMIT Physical Medicine & Rehabilitation Spinal Cord Injury Medicine; ATTEND Internal Medicine
DX: G92 Toxic encephalopathy (principal); E43 Unspecified severe protein-calorie malnutrition; L89.153 Pressure ulcer of sacral region, stage 3; E87.2 Acidosis; J18.9 Pneumonia, unspecified organism; N17.9 Acute kidney failure, unspecified; S32.591A Other specified fracture of right pubis, initial encounter for closed fracture; E87.1 Hypo-osmolality and hyponatremia; E87.8 Other disorders of electrolyte and fluid balance, not elsewhere classified; S32.021A Stable burst fracture of second lumbar vertebra, initial encounter for closed fracture; S32.10XA Unspecified fracture of sacrum, initial encounter for closed fracture; S32.592A Other specified fracture of left pubis, initial encounter for closed fracture; G82.50 Quadriplegia, unspecified; D64.9 Anemia, unspecified; M48.061 Spinal stenosis, lumbar region without neurogenic claudication; E87.5 Hyperkalemia; I12.9 Hypertensive chronic kidney disease with stage 1 through stage 4 chronic kidney disease, or unspecified chronic kidney disease; N39.0 Urinary tract infection, site not specified; M19.90 Unspecified osteoarthritis, unspecified site; N18.9 Chronic kidney disease, unspecified; E55.9 Vitamin D deficiency, unspecified; M47.816 Spondylosis without myelopathy or radiculopathy, lumbar region; M85.80 Other specified disorders of bone density and structure, unspecified site; R13.10 Dysphagia, unspecified; R53.81 Other malaise; R26.9 Unspecified abnormalities of gait and mobility; W18.39XA Other fall on same level, initial encounter; Y93.89 Activity, other specified; Y92.89 Other specified places as the place of occurrence of the external cause; Y99.8 Other external cause status; Z79.899 Other long term (current) drug therapy; Z82.49 Family history of ischemic heart disease and other diseases of the circulatory system; Z86.73 Personal history of transient ischemic attack (TIA), and cerebral infarction without residual deficits; Z91.14 Patient's other noncompliance with medication regimen; Z68.28 Body mass index [BMI] 28.0-28.9, adult
CPT/HCPCS: 36415; 74018; 80048; 80053; 81003; 82040; 82140; 82306; 82607; 82746; 82962; 83036; 84134; 84439; 84443; 84481; 85025; 87077; 87186; 87493; 92523; 92610; 93970; 97110; 97162; 97166; 97530; 97535; 97760; A4565; C1893; J1100; J1200; J1650; J2405; J8540; A5200

== ENCOUNTER 2021-09-13 15:02 | Inpatient (IN) | payer MEDICARE, MEDICAID ==
[~2021-09-13] VITALS: Ht 160 cm; Wt 64.4 kg
[~2021-09-13 15:02] MED LIST changes: -OMEP40CA12 PO; +OMEP40CA20 PO
[2021-09-13] MEDS ORDERED: ONDANSETRON HCL 4MG/2ML INJ IV STA (15:53)
[2021-09-13] MEDS ORDERED: SODIUM CHLORIDE 0.9% 1,000 ML IV ONE (16:00)
[2021-09-13 16:21] LABS: BG BASE EXCESS -2.4 mmol/L (-2.0-2.0); BG CARBOXYHEMOGLOBIN 0.3 % (0.5-1.5); BG DEOXYHEMOGLOBIN 2.2 % (0.0-5.0); BG HCO3 ACT 19.8 mmol/L (22.0-26.0); BG METHEMOGLOBIN 0.4 % (0.0-1.5); BG OXYGEN SATURATION 97.8 % (92.0-98.5); BG OXYHEMOGLOBIN 97.1 % (94.0-97.0); BG PH 7.484 (7.350-7.450); BG PO2 112.4 mmHg (75.0-100.0); BG SAMPLE SITE RIGHT RADIAL; BG VENT MODE NASAL CANNULA
[2021-09-13 16:54] LABS: CHLORIDE 108 mEq/L (98-107)
[2021-09-13 16:57] LABS: ETHANOL BLOOD < 10 mg/dL
[2021-09-13 16:59] LABS: C REACTIVE PROTEIN QUANT 4.2 mg/L (0.0-3.0)
[2021-09-13 17:44] LABS: BASOPHILS % 0.4 % (0.0-2.0); EOSINOPHILS % 0.4 % (0.0-5.0); HEMATOCRIT. 36.5 % (36.0-48.0); HEMOGLOBIN. 11.7 g/dL (12.0-16.0); LYMPHOCYTES % 44.6 % (20.0-50.0); MEAN CORPUSCULAR VOLUME 90.3 fL (81.0-99.0); MEAN PLATELET VOLUME 7.6 fl (7.4-10.4); MONOCYTES % 9.1 % (2.0-8.0); NEUTROPHILS % 45.5 % (40.0-76.0); PLATELET 370 x1000/uL (130-400); RED BLOOD CELL COUNT 4.03 mill/uL (4.2-5.4); RED CELL DISTRIBUTION WIDTH 17.5 % (11.6-14.6)
[2021-09-13 17:59] LABS: CLARITY URINE CLEAR (CLEAR); COLOR URINE YELLOW (YELLOW); KETONES URINE NEGATIVE (NEGATIVE); LEUKOCYTE ESTERASE URINE 2+ (NEGATIVE); NITRITE URINE NEGATIVE (NEGATIVE); OCCULT BLOOD URINE 1+ (NEGATIVE); PH URINE 7.5 (4.5-8.0); PROTEIN URINE NEGATIVE (NEGATIVE); SPECIFIC GRAVITY URINE 1.007 (1.005-1.030); UROBILINOGEN URINE 0.2 E.U./dL (0.2-1.0)
[2021-09-13 18:43] LABS: *AMPHETAMINES SCREEN URINE NEGATIVE (NEGATIVE); *BARBITURATES SCREEN URINE NEGATIVE (NEGATIVE); *BENZODIAZEPINES SCREEN URINE NEGATIVE (NEGATIVE); *COCAINE SCREEN URINE NEGATIVE (NEGATIVE)
[2021-09-13 18:44] LABS: CANNABINOID URINE SCREEN NEGATIVE (NEGATIVE); METHADONE URINE SCREEN NEGATIVE (NEGATIVE); OPIATES URINE SCREEN NEGATIVE (NEGATIVE); PHENCYCLIDINE URINE SCREEN NEGATIVE (NEGATIVE)
[2021-09-13] MEDS ORDERED: CEFTRIAXONE 1 G PREMIX 50 ML IV ONE (20:45)
[2021-09-14] MEDS ORDERED: MAGNESIUM/ALUMINUM HYDROXIDE/SIMETHICONE 30ML UDC PO PRN (01:45)
[2021-09-14] MEDS ORDERED: CLONIDINE 0.1MG TABLET PO PRN (01:45)
[2021-09-14] MEDS ORDERED: ONDANSETRON HCL 4MG/2ML INJ IV PRN (01:45)
[2021-09-14] MEDS ORDERED: DIPHENHYDRAMINE 50MG/ML VIAL IV PRN (01:45)
[2021-09-14] MEDS ORDERED: ACETAMINOPHEN 325MG TABLET PO PRN ×2 (01:45)
[2021-09-14] MEDS ORDERED: GUAIFENESIN 200MG/10ML SUGAR FREE UDC PO PRN (01:45)
[2021-09-14] MEDS ORDERED: MAGNESIUM HYDROXIDE 400MG/5ML 30ML UDC PO PRN (01:45)
[2021-09-14] MEDS ORDERED: ZOLPIDEM TARTRATE 5MG TABLET PO PRN (01:45)
[2021-09-14 05:00] VITALS: BP 139/57
[2021-09-14] MEDS ORDERED: CEFTRIAXONE 1 G PREMIX 50 ML IV SCH (06:00)
[2021-09-14] MEDS: SODIUM CHLORIDE 0.9% INJ 3ML FLUSH IVF SCH ×3 (07:14→21:06)
[2021-09-14] MEDS: OMEPRAZOLE 20MG CAPSULE EXTENDED RELEASE PO SCH ×2 (07:14→20:42)
[2021-09-14 08:00] VITALS: BP 138/70
[2021-09-14] MEDS: LOSARTAN POTASSIUM 50 MG TABLET PO SCH (09:58)
[2021-09-14] MEDS: DOCUSATE SODIUM 100MG CAPSULE PO SCH ×2 (09:58→18:24)
[2021-09-14] MEDS: ENOXAPARIN 40MG/0.4ML SYR SUBCUT SCH (09:59)
[2021-09-14] MEDS: AMLODIPINE 5MG TABLET PO SCH ×2 (09:59→20:42)
[2021-09-14] MEDS: IBUPROFEN 400MG TABLET PO PRN ×2 (10:08→20:43)
[2021-09-14 12:00] VITALS: BP 132/75
[2021-09-14 16:00] VITALS: BP 155/89
[2021-09-14 20:00] VITALS: BP 147/69
[2021-09-14] MEDS ORDERED: CEFTRIAXONE 1,000 MG in DEXTROSE 5% WATER 50 ML IV SCH (20:00)
[2021-09-15] VITALS: BP 157/86
[2021-09-15 04:00] VITALS: BP 149/83
[2021-09-15] MEDS: OMEPRAZOLE 20MG CAPSULE EXTENDED RELEASE PO SCH (06:26)
[2021-09-15] MEDS: SODIUM CHLORIDE 0.9% INJ 3ML FLUSH IVF SCH ×2 (06:26→13:09)
[2021-09-15 08:00] VITALS: BP 112/58
[2021-09-15] MEDS: DOCUSATE SODIUM 100MG CAPSULE PO SCH ×2 (08:00→16:14)
[2021-09-15] MEDS: LOSARTAN POTASSIUM 50 MG TABLET PO SCH (08:00)
[2021-09-15] MEDS: ENOXAPARIN 40MG/0.4ML SYR SUBCUT SCH (08:00)
[2021-09-15] MEDS: AMLODIPINE 5MG TABLET PO SCH (08:00)
[2021-09-15 12:00] VITALS: BP 107/49
[2021-09-15 14:54] VITALS: BP 107/49
[2021-09-15] MEDS: IBUPROFEN 400MG TABLET PO PRN (15:29)
[2021-09-15 16:00] VITALS: BP 139/84
== END 2021-09-15 17:50 | disposition home or self-care (01) | DRG 720 ==
LOC: ER 15:02 → EDBEDREQTM 18:56 → EDBEDREQSVC 18:56 → EDBEDREQ 18:56 → 8WST 20:38 → EDBEDREQ 20:43 → EDBEDREQTM 20:43 → ENRESERV 09-14 03:58
PROVIDERS: ADMIT Internal Medicine; ATTEND Internal Medicine
DX: A41.9 Sepsis, unspecified organism (principal); F03.90 Unspecified dementia, unspecified severity, without behavioral disturbance, psychotic disturbance, mood disturbance, and anxiety; I10 Essential (primary) hypertension; N39.0 Urinary tract infection, site not specified; M19.90 Unspecified osteoarthritis, unspecified site; G89.29 Other chronic pain; Z79.899 Other long term (current) drug therapy; Z86.73 Personal history of transient ischemic attack (TIA), and cerebral infarction without residual deficits
CPT/HCPCS: 36415; 36600; 71045; 74176; 80053; 80305; 80320; 81003; 82375; 82805; 83605; 83880; 84145; 84484; 85025; 86140; 87077; 87426; 93005; 99285; C1893; J0696; J1650; J2405; J7030; J7060; G0480

== ENCOUNTER 2022-01-12 16:41 | Inpatient (IN) | payer MEDICARE, MEDICAID ==
[~2022-01-12] VITALS: Ht 160 cm; Wt 62.6 kg
[2022-01-12 17:36] LABS: BASOPHILS % 0.7 % (0.0-2.0); EOSINOPHILS % 1.2 % (0.0-5.0); HEMATOCRIT. 34.6 % (36.0-48.0); HEMOGLOBIN. 12.1 g/dL (12.0-16.0); LYMPHOCYTES % 43.8 % (20.0-50.0); MEAN CORPUSCULAR VOLUME 91.8 fL (81.0-99.0); MEAN PLATELET VOLUME 7.2 fl (7.4-10.4); MONOCYTES % 9.6 % (2.0-8.0); NEUTROPHILS % 44.7 % (40.0-76.0); PLATELET 276 x1000/uL (130-400); RED BLOOD CELL COUNT 3.77 mill/uL (4.2-5.4); RED CELL DISTRIBUTION WIDTH 15.3 % (11.6-14.6)
[2022-01-12 17:47] LABS: CHLORIDE 99 mEq/L (98-107)
[2022-01-12] MEDS ORDERED: SODIUM CHLORIDE 0.9% 1,000 ML IV ONE (18:15)
[2022-01-12] MEDS ORDERED: LACTULOSE 20G/30ML UDC PO ONE (18:15)
[2022-01-12 18:30] LABS: INR 1.2; PROTHROMBIN TIME 12.6 sec (9.6-11.0)
[2022-01-12 18:54] LABS: PHOSPHORUS 3.3 mg/dL (2.5-4.9)
[2022-01-12] MEDS ORDERED: MAGNESIUM/ALUMINUM HYDROXIDE/SIMETHICONE 30ML UDC PO PRN (19:30)
[2022-01-12] MEDS ORDERED: IPRATROPIUM/ALBUTEROL 0.5-3(2.5)MG/3ML NEB NEB PRN (19:30)
[2022-01-12] MEDS ORDERED: DOCUSATE SODIUM 100MG CAPSULE PO PRN (19:30)
[2022-01-12] MEDS ORDERED: GUAIFENESIN 200MG/10ML SUGAR FREE UDC PO PRN (19:30)
[2022-01-12] MEDS ORDERED: ONDANSETRON HCL 4MG/2ML INJ IV PRN (19:30)
[2022-01-12] MEDS ORDERED: ACETAMINOPHEN 325MG TABLET PO PRN ×2 (19:30)
[2022-01-12] MEDS ORDERED: NITROGLYCERIN 0.4MG TABLET SL SL PRN (19:30)
[2022-01-12 19:59] LABS: CLARITY URINE CLEAR (CLEAR); COLOR URINE YELLOW (YELLOW); KETONES URINE NEGATIVE (NEGATIVE); LEUKOCYTE ESTERASE URINE 1+ (NEGATIVE); NITRITE URINE NEGATIVE (NEGATIVE); OCCULT BLOOD URINE NEGATIVE (NEGATIVE); PH URINE 7.5 (4.5-8.0); PROTEIN URINE NEGATIVE (NEGATIVE); UROBILINOGEN URINE 0.2 E.U./dL (0.2-1.0)
[2022-01-12 20:15] LABS: *AMPHETAMINES SCREEN URINE NEGATIVE (NEGATIVE); CANNABINOID URINE SCREEN NEGATIVE (NEGATIVE); OPIATES URINE SCREEN NEGATIVE (NEGATIVE); PHENCYCLIDINE URINE SCREEN NEGATIVE (NEGATIVE)
[2022-01-12 20:16] LABS: *BARBITURATES SCREEN URINE NEGATIVE (NEGATIVE); *BENZODIAZEPINES SCREEN URINE NEGATIVE (NEGATIVE); *COCAINE SCREEN URINE NEGATIVE (NEGATIVE); METHADONE URINE SCREEN NEGATIVE (NEGATIVE)
[2022-01-12 20:23] LABS: T4 FREE 1.43 ng/dL (0.76-1.46)
[2022-01-12 20:41] LABS: FOLIC ACID (FOLATE) SERUM 11.4 ng/mL (>5.38)
[2022-01-12] MEDS ORDERED: ZOLPIDEM TARTRATE 5MG TABLET PO PRN (21:00)
[2022-01-12] MEDS ORDERED: LEVOFLOXACIN 500MG PREMIX 100 ML IV NR (21:30)
[2022-01-12] MEDS ORDERED: SODIUM CHLORIDE 0.9% 1000ML BAG (SEPSIS BOLUS) IV ONE (21:30)
[2022-01-12] MEDS: LACTULOSE 20G/30ML UDC PO SCH (22:00)
[2022-01-12] MEDS: ASCORBIC ACID 500 MG TABLET PO SCH (22:01)
[2022-01-12] MEDS: FAMOTIDINE 20MG TABLET PO SCH (22:01)
[2022-01-12] MEDS: ENOXAPARIN 40MG/0.4ML SYR SUBCUT SCH (22:01)
[2022-01-13] MEDS: LACTULOSE 20G/30ML UDC PO SCH ×8 (00:29→23:09)
[2022-01-13] MEDS: CEFTRIAXONE 1,000 MG in DEXTROSE 5% WATER 50 ML IV SCH ×2 (00:30→23:01)
[2022-01-13 00:31] LABS: CREATINE KINASE 32 IU/L (26-192); CREATINE KINASE MB FRACTION < 1.0 ng/mL (0.5-3.6)
[2022-01-13] MEDS: KETOROLAC 15MG/ML VIAL IV PRN ×2 (01:25→01:29)
[2022-01-13] MEDS: CLONIDINE 0.1MG TABLET PO PRN (02:23)
[2022-01-13 04:45] LABS: BASOPHILS % 0.8 % (0.0-2.0); EOSINOPHILS % 0.4 % (0.0-5.0); HEMOGLOBIN. 10.6 g/dL (12.0-16.0); LYMPHOCYTES % 36.1 % (20.0-50.0); MEAN CORPUSCULAR HEMOGLOBIN 30.2 pg (28.0-32.0); MEAN CORPUSCULAR VOLUME 91.3 fL (81.0-99.0); MEAN PLATELET VOLUME 7.1 fl (7.4-10.4); NEUTROPHILS % 50.7 % (40.0-76.0); PLATELET 316 x1000/uL (130-400); RED CELL DISTRIBUTION WIDTH 15.3 % (11.6-14.6)
[2022-01-13 05:58] LABS: CHLORIDE 104 mEq/L (98-107)
[2022-01-13 06:09] LABS: CREATINE KINASE 72 IU/L (26-192); CREATINE KINASE MB FRACTION 1.4 ng/mL (0.5-3.6); PHOSPHORUS 3.8 mg/dL (2.5-4.9)
[2022-01-13] MEDS ORDERED: CEFTRIAXONE 1 G PREMIX 50 ML IV SCH (09:00)
[2022-01-13] MEDS: ASCORBIC ACID 500 MG TABLET PO SCH ×2 (10:12→20:41)
[2022-01-13] MEDS: CHOLECALCIFEROL (D3) 1000 UNIT TABLET PO SCH (10:12)
[2022-01-13] MEDS: ZINC SULFATE 220 MG ( 50 ) CAPSULE PO SCH (10:12)
[2022-01-13] MEDS: ASPIRIN 325MG EC TABLET PO SCH (10:13)
[2022-01-13 12:00] VITALS: BP 108/69
[2022-01-13 16:00] VITALS: BP 148/70
[2022-01-13 20:00] VITALS: BP 103/75
[2022-01-13] MEDS: ENOXAPARIN 40MG/0.4ML SYR SUBCUT SCH (20:41)
[2022-01-13] MEDS: FAMOTIDINE 20MG TABLET PO SCH (20:41)
[2022-01-13] MEDS: SODIUM CHLORIDE 0.9% 1,000 ML IV SCH (20:42)
[2022-01-13] MEDS: LEVOFLOXACIN 250MG PREMIX 50 ML IV SCH (21:18)
[2022-01-14] VITALS: BP 163/52
[2022-01-14] MEDS: CLONIDINE 0.1MG TABLET PO PRN (01:13)
[2022-01-14 04:00] VITALS: BP 128/58
[2022-01-14] MEDS: LACTULOSE 20G/30ML UDC PO SCH ×5 (04:00→21:39)
[2022-01-14 06:44] LABS: CHLORIDE 115 mEq/L (98-107)
[2022-01-14 06:54] LABS: PHOSPHORUS 3.1 mg/dL (2.5-4.9)
[2022-01-14 08:00] VITALS: BP 139/61
[2022-01-14] MEDS: SODIUM CHLORIDE 0.9% 1,000 ML IV SCH ×2 (09:28→21:39)
[2022-01-14] MEDS: ASPIRIN 325MG EC TABLET PO SCH (09:29)
[2022-01-14] MEDS: CHOLECALCIFEROL (D3) 1000 UNIT TABLET PO SCH (09:29)
[2022-01-14] MEDS: ASCORBIC ACID 500 MG TABLET PO SCH ×2 (09:29→21:39)
[2022-01-14] MEDS: ZINC SULFATE 220 MG ( 50 ) CAPSULE PO SCH (09:29)
[2022-01-14 11:14] LABS: BASOPHILS % 0.7 % (0.0-2.0); EOSINOPHILS % 3.6 % (0.0-5.0); HEMATOCRIT. 32.5 % (36.0-48.0); HEMOGLOBIN. 10.7 g/dL (12.0-16.0); LYMPHOCYTES % 36.3 % (20.0-50.0); MEAN CORPUSCULAR HEMOGLOBIN 30.4 pg (28.0-32.0); MEAN PLATELET VOLUME 7.3 fl (7.4-10.4); MONOCYTES % 13.8 % (2.0-8.0); NEUTROPHILS % 45.6 % (40.0-76.0); PLATELET 284 x1000/uL (130-400); RED BLOOD CELL COUNT 3.51 mill/uL (4.2-5.4); RED CELL DISTRIBUTION WIDTH 15.1 % (11.6-14.6)
[2022-01-14 11:20] LABS: MEAN CORPUSCULAR VOLUME 92.5 fL (81.0-99.0)
[2022-01-14 12:00] VITALS: BP 143/68
[2022-01-14 16:00] VITALS: BP 114/57
[2022-01-14 20:00] VITALS: BP 144/93
[2022-01-14] MEDS: FAMOTIDINE 20MG TABLET PO SCH (21:39)
[2022-01-14] MEDS: ENOXAPARIN 40MG/0.4ML SYR SUBCUT SCH (21:47)
[2022-01-15] VITALS (7 sets, daily range): BP systolic 130–181; BP diastolic 58–77
[2022-01-15] MEDS: LEVOFLOXACIN 250MG PREMIX 50 ML IV SCH ×2 (00:14→21:26)
[2022-01-15] MEDS: CEFTRIAXONE 1,000 MG in DEXTROSE 5% WATER 50 ML IV SCH ×2 (01:41→22:50)
[2022-01-15] MEDS: LACTULOSE 20G/30ML UDC PO SCH ×6 (01:41→21:25)
[2022-01-15] MEDS: ZINC SULFATE 220 MG ( 50 ) CAPSULE PO SCH (09:43)
[2022-01-15] MEDS: CHOLECALCIFEROL (D3) 1000 UNIT TABLET PO SCH (09:43)
[2022-01-15] MEDS: ASCORBIC ACID 500 MG TABLET PO SCH ×2 (09:43→21:25)
[2022-01-15] MEDS: ASPIRIN 325MG EC TABLET PO SCH (09:43)
[2022-01-15] MEDS: SODIUM CHLORIDE 0.9% 1,000 ML IV SCH ×2 (09:44→22:53)
[2022-01-15] MEDS: CLONIDINE 0.1MG TABLET PO PRN ×2 (10:12→17:09)
[2022-01-15] MEDS: FAMOTIDINE 20MG TABLET PO SCH (21:25)
[2022-01-15] MEDS: ENOXAPARIN 40MG/0.4ML SYR SUBCUT SCH (21:28)
[2022-01-16] VITALS: BP 164/77
[2022-01-16] MEDS: CLONIDINE 0.1MG TABLET PO PRN (01:03)
[2022-01-16 04:00] VITALS: BP 141/110
[2022-01-16] MEDS: LACTULOSE 20G/30ML UDC PO SCH ×7 (05:04→23:22)
[2022-01-16 08:00] VITALS: BP 145/77
[2022-01-16] MEDS: ASPIRIN 325MG EC TABLET PO SCH (10:38)
[2022-01-16] MEDS: ASCORBIC ACID 500 MG TABLET PO SCH ×2 (10:38→21:00)
[2022-01-16] MEDS: AMLODIPINE 10MG TABLET PO SCH (10:39)
[2022-01-16] MEDS: ZINC SULFATE 220 MG ( 50 ) CAPSULE PO SCH (10:39)
[2022-01-16] MEDS: CHOLECALCIFEROL (D3) 1000 UNIT TABLET PO SCH (10:39)
[2022-01-16 12:00] VITALS: BP 139/74
[2022-01-16] MEDS: SODIUM CHLORIDE 0.9% 1,000 ML IV SCH (14:25)
[2022-01-16 16:00] VITALS: BP 130/61
[2022-01-16 20:00] VITALS: BP 142/108
[2022-01-16] MEDS: ENOXAPARIN 40MG/0.4ML SYR SUBCUT SCH (20:00)
[2022-01-16] MEDS: FAMOTIDINE 20MG TABLET PO SCH (21:00)
[2022-01-16] MEDS: LEVOFLOXACIN 250MG PREMIX 50 ML IV SCH (22:27)
[2022-01-16] MEDS: CEFTRIAXONE 1,000 MG in DEXTROSE 5% WATER 50 ML IV SCH (23:20)
[2022-01-17] VITALS: BP 145/58
[2022-01-17 04:00] VITALS: BP 161/67
[2022-01-17] MEDS: LACTULOSE 20G/30ML UDC PO SCH ×4 (04:00→17:28)
[2022-01-17] MEDS: SODIUM CHLORIDE 0.9% 1,000 ML IV SCH ×2 (05:11→15:35)
[2022-01-17 08:00] VITALS: BP 144/55
[2022-01-17] MEDS: ASPIRIN 325MG EC TABLET PO SCH (08:44)
[2022-01-17] MEDS: AMLODIPINE 10MG TABLET PO SCH (08:45)
[2022-01-17] MEDS: ASCORBIC ACID 500 MG TABLET PO SCH (08:45)
[2022-01-17] MEDS: CHOLECALCIFEROL (D3) 1000 UNIT TABLET PO SCH (08:46)
[2022-01-17] MEDS: ZINC SULFATE 220 MG ( 50 ) CAPSULE PO SCH (08:46)
[2022-01-17 11:47] VITALS: BP 132/64
[2022-01-17 12:00] VITALS: BP 153/48
[2022-01-17 16:00] VITALS: BP 141/72
== END 2022-01-17 23:53 | disposition home health service (06) | DRG 720 ==
LOC: ER 16:41 → MICUSO 19:00 → SUPCPDRO 19:18 → 7EST 01-13 11:29
PROVIDERS: ADMIT Internal Medicine; ATTEND Internal Medicine
PROC: 0JB70ZZ Excision of Back Subcutaneous Tissue and Fascia, Open Approach (ICD-10-PCS; principal; 2022-01-15)
DX: A41.9 Sepsis, unspecified organism (principal); L89.153 Pressure ulcer of sacral region, stage 3; E44.0 Moderate protein-calorie malnutrition; G92.8 Other toxic encephalopathy; E11.40 Type 2 diabetes mellitus with diabetic neuropathy, unspecified; F03.90 Unspecified dementia, unspecified severity, without behavioral disturbance, psychotic disturbance, mood disturbance, and anxiety; E87.1 Hypo-osmolality and hyponatremia; I10 Essential (primary) hypertension; N39.0 Urinary tract infection, site not specified; R65.20 Severe sepsis without septic shock; Z68.24 Body mass index [BMI] 24.0-24.9, adult; Z79.899 Other long term (current) drug therapy; Z74.01 Bed confinement status
CPT/HCPCS: 36415; 70551; 71045; 80053; 80061; 80305; 80307; 80329; 81003; 82040; 82140; 82550; 82553; 82570; 82607; 82746; 82962; 83036; 83540; 83550; 83605; 83735; 83880; 83930; 83935; 84100; 84134; 84145; 84300; 84439; 84443; 84484; 84540; 84560; 85025; 86850; 86900; 93005; 93306; 93970; 94640; 99285; C1893; J0696; J1650; J1885; J1956; J7030; J7060

== ENCOUNTER 2023-01-15 06:46 | Inpatient (IN) | payer MEDICARE, MEDICAID ==
[~2023-01-15] VITALS: Ht 165.1 cm; Wt 52.2 kg
[2023-01-15 07:30] LABS: BASOPHILS % 0.5 % (0.0-2.0); EOSINOPHILS % 0.6 % (0.0-5.0); HEMATOCRIT. 29.9 % (36.0-48.0); HEMOGLOBIN. 10.3 g/dL (12.0-16.0); LYMPHOCYTES % 18.3 % (20.0-50.0); MEAN CORPUSCULAR HEMOGLOBIN 30.3 pg (28.0-32.0); MEAN CORPUSCULAR VOLUME 87.7 fL (81.0-99.0); MEAN PLATELET VOLUME 7.5 fl (7.4-10.4); MONOCYTES % 4.6 % (2.0-8.0); PLATELET 327 x1000/uL (130-400); RED BLOOD CELL COUNT 3.41 mill/uL (4.2-5.4); RED CELL DISTRIBUTION WIDTH 16.5 % (11.6-14.6)
[2023-01-15 07:51] LABS: BG BASE EXCESS -1.8 mmol/L (-2.0-2.0); BG CARBOXYHEMOGLOBIN 0.3 % (0.5-1.5); BG DEOXYHEMOGLOBIN 0.7 % (0.0-5.0); BG FRACTION INSPIRED OXYGEN 100; BG HCO3 ACT 21.5 mmol/L (22.0-26.0); BG METHEMOGLOBIN 0.3 % (0.0-1.5); BG OXYGEN SATURATION 99.3 % (92.0-98.5); BG OXYHEMOGLOBIN 98.7 % (94.0-97.0); BG PCO2 31.6 mmHg (35.0-45.0); BG PH 7.451 (7.350-7.450); BG PO2 226.5 mmHg (75.0-100.0); BG SAMPLE SITE RIGHT RADIAL; BG VENT MODE MASK - NRB
[2023-01-15] MEDS ORDERED: VANCOMYCIN 1G PREMIX 200 ML IV ONE (08:15)
[2023-01-15] MEDS ORDERED: SODIUM CHLORIDE 0.9% 1000ML BAG (SEPSIS BOLUS) IV ONE (08:15)
[2023-01-15] MEDS ORDERED: PIPERACILLIN/TAZ 3.375G PREMIX 50 ML IV ONE (08:15)
[2023-01-15 08:20] LABS: CHLORIDE 84 mEq/L (98-107)
[2023-01-15] MEDS: IPRATROPIUM/ALBUTEROL 0.5-3(2.5)MG/3ML NEB NEB SCH ×2 (08:20→14:00)
[2023-01-15 08:22] LABS: INR 1.2; PROTHROMBIN TIME 12.4 sec (9.6-11.0)
[2023-01-15 08:31] LABS: CLARITY URINE CLEAR (CLEAR); COLOR URINE YELLOW (YELLOW); KETONES URINE NEGATIVE (NEGATIVE); LEUKOCYTE ESTERASE URINE NEGATIVE (NEGATIVE); NITRITE URINE NEGATIVE (NEGATIVE); OCCULT BLOOD URINE NEGATIVE (NEGATIVE); PH URINE 7.5 (4.5-8.0); PROTEIN URINE NEGATIVE (NEGATIVE); UROBILINOGEN URINE 0.2 E.U./dL (0.2-1.0)
[2023-01-15] MEDS ORDERED: DEXT 5%/0.9% NACL 1,000 ML IV SCH (11:15)
[2023-01-15] MEDS ORDERED: GUAIFENESIN 200MG/10ML SUGAR FREE UDC PO PRN (11:15)
[2023-01-15] MEDS ORDERED: IPRATROPIUM/ALBUTEROL 0.5-3(2.5)MG/3ML NEB NEB PRN (11:15)
[2023-01-15] MEDS ORDERED: ACETAMINOPHEN 650MG SUPP PR PRN (11:15)
[2023-01-15] MEDS ORDERED: DOCUSATE SODIUM 100MG CAPSULE PO PRN (11:15)
[2023-01-15] MEDS ORDERED: CLONIDINE 0.1MG TABLET PO PRN (11:15)
[2023-01-15] MEDS: FAMOTIDINE 20MG/2ML VIAL IV SCH (13:38)
[2023-01-15] MEDS: ENOXAPARIN 30MG/0.3ML SYR SUBCUT SCH (13:38)
[2023-01-15 14:03] LABS: TOTAL IRON BINDING CAPACITY 290 ug/dL (250-450)
[2023-01-15] MEDS ORDERED: DEXTROSE 50% WATER 50ML SYRINGE IV PRN (14:15)
[2023-01-15 15:48] LABS: VITAMIN B12 SERUM > 2000.0 pg/mL (211-911)
[2023-01-15 16:00] VITALS: BP 117/46
[2023-01-15] MEDS: BLOOD SUGAR DIAGNOSTIC STRIP TEST SCH (17:00)
[2023-01-15 20:00] VITALS: BP 125/43
[2023-01-16] VITALS: BP 116/51
[2023-01-16 04:00] VITALS: BP 119/36
[2023-01-16 05:47] LABS: HEMATOCRIT. 26.2 % (36.0-48.0); MEAN CORPUSCULAR HEMOGLOBIN 29.8 pg (28.0-32.0); MEAN PLATELET VOLUME 7.6 fl (7.4-10.4); PLATELET 255 x1000/uL (130-400); RED BLOOD CELL COUNT 3.01 mill/uL (4.2-5.4); RED CELL DISTRIBUTION WIDTH 16.4 % (11.6-14.6)
[2023-01-16 06:06] LABS: CHLORIDE 97 mEq/L (98-107)
[2023-01-16 06:23] LABS: HDL CHOLESTEROL 44 mg/dL (40-59); LDL CHOLESTEROL 58 mg/dL (5-100)
[2023-01-16 08:00] VITALS: BP 121/52
[2023-01-16] MEDS: DEXT 5%/0.45% NACL 1000ML 1,000 ML IV SCH (08:12)
[2023-01-16] MEDS: BLOOD SUGAR DIAGNOSTIC STRIP TEST SCH ×2 (08:23→17:00)
[2023-01-16] MEDS: IPRATROPIUM/ALBUTEROL 0.5-3(2.5)MG/3ML NEB NEB SCH (09:08)
[2023-01-16] MEDS: ENOXAPARIN 30MG/0.3ML SYR SUBCUT SCH (11:38)
[2023-01-16 12:00] VITALS: BP 118/79
[2023-01-16 12:58] LABS: SODIUM URINE RANDOM 32 mEq/L
[2023-01-16 14:00] LABS: PLATELET ESTIMATE NORMAL
[2023-01-16 16:00] VITALS: BP 117/51
[2023-01-16] MEDS ORDERED: VANCOMYCIN 750MG PREMIX 150 ML IV SCH (18:00)
[2023-01-16 20:00] VITALS: BP 120/48
[2023-01-16] MEDS: PIPERACILLIN/TAZOBACTAM 3.375 G in DEXTROSE 5% WATER 50 ML IV SCH (22:00)
[2023-01-17] VITALS: BP 125/50
[2023-01-17] MEDS: DEXT 5%/0.45% NACL 1000ML 1,000 ML IV SCH ×2 (00:40→16:25)
[2023-01-17] MEDS: PIPERACILLIN/TAZOBACTAM 3.375 G in DEXTROSE 5% WATER 50 ML IV SCH ×3 (05:21→21:15)
[2023-01-17 06:30] LABS: BASOPHILS % 0.1 % (0.0-2.0); EOSINOPHILS % 0.1 % (0.0-5.0); HEMATOCRIT. 28.5 % (36.0-48.0); LYMPHOCYTES % 10.4 % (20.0-50.0); MEAN CORPUSCULAR VOLUME 88.5 fL (81.0-99.0); MEAN PLATELET VOLUME 7.4 fl (7.4-10.4); NEUTROPHILS % 83.4 % (40.0-76.0); PLATELET 271 x1000/uL (130-400); RED BLOOD CELL COUNT 3.22 mill/uL (4.2-5.4); RED CELL DISTRIBUTION WIDTH 16.3 % (11.6-14.6)
[2023-01-17] MEDS ORDERED: LIDOCAINE HCL 1% 30ML VIAL (10MG/ML) ONE (07:40)
[2023-01-17 07:42] LABS: CHLORIDE 101 mEq/L (98-107)
[2023-01-17 07:49] VITALS: BP 109/43
[2023-01-17 08:10] VITALS: BP 116/45
[2023-01-17] MEDS: BLOOD SUGAR DIAGNOSTIC STRIP TEST SCH ×2 (09:47→16:25)
[2023-01-17] MEDS ORDERED: FURO40SO PO (10:41)
[2023-01-17] MEDS ORDERED: DOCU100T PO (10:41)
[2023-01-17] MEDS ORDERED: LOSA1TAB37 MT (10:41)
[2023-01-17] MEDS ORDERED: ACET-2708 PO (10:41)
[2023-01-17] MEDS ORDERED: AMLO10TA80 PO (10:41)
[2023-01-17] MEDS ORDERED: TOPUD MT (10:41)
[2023-01-17] MEDS ORDERED: OMEP20CA14 PO (10:41)
[2023-01-17] MEDS ORDERED: CARV3.1242 PO (10:41)
[2023-01-17] MEDS ORDERED: CLON1PAT10 TP (10:43)
[2023-01-17] MEDS: ENOXAPARIN 30MG/0.3ML SYR SUBCUT SCH (11:13)
[2023-01-17] MEDS: FAMOTIDINE 20MG/2ML VIAL IV SCH (11:14)
[2023-01-17] MEDS: VANCOMYCIN 750MG PREMIX 150 ML IV SCH (11:14)
[2023-01-17 12:00] VITALS: BP 119/38
[2023-01-17] MEDS ORDERED: VANCOMYCIN 1G PREMIX 200 ML IV SCH (12:00)
[2023-01-17] MEDS: ACETAMINOPHEN 325MG TABLET PO PRN ×2 (15:57→21:55)
[2023-01-17] MEDS ORDERED: KCL 20MEQ/100ML PREMIX 100 ML IV NR (16:00)
[2023-01-17 16:21] VITALS: BP 103/79
[2023-01-17] MEDS ORDERED: VANCOMYCIN 500MG PREMIX 100 ML IV SCH (18:00)
[2023-01-17 20:00] VITALS: BP 114/54
[2023-01-17] MEDS: IPRATROPIUM/ALBUTEROL 0.5-3(2.5)MG/3ML NEB NEB SCH (20:02)
[2023-01-18] VITALS: BP 110/56
[2023-01-18] MEDS: IPRATROPIUM/ALBUTEROL 0.5-3(2.5)MG/3ML NEB NEB SCH ×3 (02:48→20:31)
[2023-01-18 04:00] VITALS: BP 132/54
[2023-01-18] MEDS: PIPERACILLIN/TAZOBACTAM 3.375 G in DEXTROSE 5% WATER 50 ML IV SCH ×3 (05:01→20:36)
[2023-01-18 05:52] LABS: BASOPHILS % 0.4 % (0.0-2.0); EOSINOPHILS % 0.6 % (0.0-5.0); HEMATOCRIT. 26.9 % (36.0-48.0); HEMOGLOBIN. 9.5 g/dL (12.0-16.0); LYMPHOCYTES % 20.6 % (20.0-50.0); MEAN CORPUSCULAR HEMOGLOBIN 31.1 pg (28.0-32.0); MEAN CORPUSCULAR VOLUME 88.4 fL (81.0-99.0); MEAN PLATELET VOLUME 7.5 fl (7.4-10.4); MONOCYTES % 9.5 % (2.0-8.0); NEUTROPHILS % 68.9 % (40.0-76.0); PLATELET 260 x1000/uL (130-400); RED BLOOD CELL COUNT 3.05 mill/uL (4.2-5.4); RED CELL DISTRIBUTION WIDTH 16.5 % (11.6-14.6)
[2023-01-18 08:00] VITALS: BP 147/31
[2023-01-18] MEDS: BLOOD SUGAR DIAGNOSTIC STRIP TEST SCH ×2 (09:03→16:59)
[2023-01-18] MEDS: DEXT 5%/0.45% NACL 1000ML 1,000 ML IV SCH (09:31)
[2023-01-18] MEDS: VANCOMYCIN 750MG PREMIX 150 ML IV SCH (11:14)
[2023-01-18] MEDS: ENOXAPARIN 30MG/0.3ML SYR SUBCUT SCH (11:15)
[2023-01-18 12:15] VITALS: BP 106/30
[2023-01-18] MEDS: FERROUS SULFATE 300MG/5ML UDC PO SCH (12:51)
[2023-01-18 16:00] VITALS: BP 124/48
[2023-01-18 20:00] VITALS: BP 127/93
[2023-01-19] VITALS (7 sets, daily range): BP systolic 130–155; BP diastolic 57–88
[2023-01-19] MEDS: IPRATROPIUM/ALBUTEROL 0.5-3(2.5)MG/3ML NEB NEB SCH ×4 (01:55→22:06)
[2023-01-19] MEDS: PIPERACILLIN/TAZOBACTAM 3.375 G in DEXTROSE 5% WATER 50 ML IV SCH ×3 (05:37→21:11)
[2023-01-19] MEDS: DEXT 5%/0.45% NACL 1000ML 1,000 ML IV SCH (05:37)
[2023-01-19 07:39] LABS: BASOPHILS % 0.9 % (0.0-2.0); HEMATOCRIT. 25.7 % (36.0-48.0); HEMOGLOBIN. 8.8 g/dL (12.0-16.0); LYMPHOCYTES % 40.3 % (20.0-50.0); MEAN CORPUSCULAR HEMOGLOBIN 30.4 pg (28.0-32.0); MEAN CORPUSCULAR VOLUME 88.5 fL (81.0-99.0); MEAN PLATELET VOLUME 7.1 fl (7.4-10.4); MONOCYTES % 12.1 % (2.0-8.0); NEUTROPHILS % 45.7 % (40.0-76.0); PLATELET 264 x1000/uL (130-400); RED CELL DISTRIBUTION WIDTH 16.6 % (11.6-14.6)
[2023-01-19] MEDS: FERROUS SULFATE 300MG/5ML UDC PO SCH (08:41)
[2023-01-19] MEDS: BLOOD SUGAR DIAGNOSTIC STRIP TEST SCH ×2 (09:00→17:00)
[2023-01-19] MEDS ORDERED: FAMOTIDINE 20MG TABLET PO SCH (12:00)
[2023-01-19] MEDS: ENOXAPARIN 30MG/0.3ML SYR SUBCUT SCH (12:38)
[2023-01-20] VITALS: BP 162/78
[2023-01-20] MEDS: IPRATROPIUM/ALBUTEROL 0.5-3(2.5)MG/3ML NEB NEB SCH ×3 (02:28→14:13)
[2023-01-20 04:00] VITALS: BP_SYST 139; BP_SYST 140; BP_DIAS 43; BP_DIAS 72
[2023-01-20] MEDS: BLOOD SUGAR DIAGNOSTIC STRIP TEST SCH ×2 (05:16→17:00)
[2023-01-20 08:00] VITALS: BP 116/24
[2023-01-20] MEDS: FERROUS SULFATE 300MG/5ML UDC PO SCH (08:35)
[2023-01-20 10:08] VITALS: BP 109/73
[2023-01-20 12:00] VITALS: BP 109/73
[2023-01-20] MEDS: ENOXAPARIN 30MG/0.3ML SYR SUBCUT SCH (12:00)
[2023-01-20] MEDS: DEXT 5%/0.45% NACL 1000ML 1,000 ML IV SCH (12:00)
[2023-01-20] MEDS: PIPERACILLIN/TAZOBACTAM 3.375 G in DEXTROSE 5% WATER 50 ML IV SCH (14:00)
[2023-01-20] MEDS ORDERED: IPRATROPIUM/ALBUTEROL 0.5-3(2.5)MG/3ML NEB ONE (14:10)
[2023-01-20 16:00] VITALS: BP 145/103
== END 2023-01-20 18:42 | disposition home health service (06) | DRG 720 ==
LOC: ER 06:46 → EDBEDREQ 08:32 → 7WST 09:41 → ENRESERV 13:32
PROVIDERS: ADMIT Internal Medicine; ATTEND Internal Medicine
DX: A41.9 Sepsis, unspecified organism (principal); J96.20 Acute and chronic respiratory failure, unspecified whether with hypoxia or hypercapnia; N17.0 Acute kidney failure with tubular necrosis; J69.0 Pneumonitis due to inhalation of food and vomit; G93.41 Metabolic encephalopathy; E46 Unspecified protein-calorie malnutrition; E87.1 Hypo-osmolality and hyponatremia; D63.8 Anemia in other chronic diseases classified elsewhere; I67.82 Cerebral ischemia; D50.9 Iron deficiency anemia, unspecified; E11.9 Type 2 diabetes mellitus without complications; I50.9 Heart failure, unspecified; I11.0 Hypertensive heart disease with heart failure; E86.0 Dehydration; Z20.822 Contact with and (suspected) exposure to COVID-19; L89.156 Pressure-induced deep tissue damage of sacral region; I07.1 Rheumatic tricuspid insufficiency; E86.1 Hypovolemia; Z79.899 Other long term (current) drug therapy; Z68.1 Body mass index [BMI] 19.9 or less, adult
CPT/HCPCS: 36415; 36600; 71045; 76770; 80048; 80053; 80061; 81003; 82375; 82607; 82746; 82805; 82962; 83036; 83540; 83550; 83605; 83735; 83880; 83930; 83935; 84100; 84134; 84145; 84295; 84300; 84439; 84443; 84484; 85025; 87077; 87426; 92610; 93005; 93306; 93970; 94640; 99291; A6261; C1893; C9803; J1650; J2543; J3370; J3480; J3490; J7030; J7060; A4315